=== PATIENT | female | born 1935 | race Caucasian/White ===

== ENCOUNTER 2017-08-31 17:40 | Inpatient (IN) | END 2017-09-01 14:06 | disposition home or self-care (01) | DRG 309 ==

== ENCOUNTER 2017-11-08 00:36 | Inpatient (IN) | END 2017-11-11 18:05 | disposition home or self-care (01) | DRG 92 ==

== ENCOUNTER 2018-04-29 19:31 | Inpatient (IN) | payer MEDICARE, OTHER ==
[~2018-04-29] VITALS: Ht 170.2 cm; Wt 49.8 kg
[~2018-04-29 19:31] MED LIST: ATOR10TA65 PO; DIGO125T93 PO; DILT120C77 PO; DIVA125C16 PO; LEVO25TA6 PO; RIVA20TA5 PO
[2018-04-29] MEDS ORDERED: ONDANSETRON 4 MG INJ IV STA (19:50)
[2018-04-29] MEDS ORDERED: morphine 4 MG/ML VIAL IV STA (19:50)
[2018-04-29] MEDS ORDERED: SOD CHLORIDE 0.9% 1,000 ML IV STA (19:52)
[2018-04-29] MEDS ORDERED: DILTIAZEM 25 MG INJ IV ONE ×2 (20:00→21:00)
[2018-04-29] MEDS ORDERED: PIPER-TAZO 3.375 GM IV (PMX) 100 ML IVPB ONE (20:30)
[2018-04-29] MEDS ORDERED: ASPI-817 PO (20:35)
[2018-04-29] MEDS ORDERED: METO-319 PO (20:35)
[2018-04-29] MEDS ORDERED: AMLO5TAB4 PO (20:35)
[2018-04-29] MEDS ORDERED: SODIUM CHLORIDE 0.9% 1L BAG IV* STA (20:52)
[2018-04-29] MEDS ORDERED: ONDANSETRON 4 MG INJ IV PRN (21:30)
[2018-04-29] MEDS ORDERED: ACETAMINOPHEN 325 MG TAB PO PRN (21:30)
--- NOTE | 2018-04-29 21:33 | ERD ---
ER Documentation Chief Complaint Chief Complaint DAIANA LEVIN from home,abd pain & no BM X3 days per caregiver's report HPI Patient is a 84-year-old female with previous stroke and atrial fibrillation who presents with rapid heart rate. Her family member who is come to the hospital also says that she is having abdominal pain. Please note the history and physical exam is limited as the patient is nonverbal from previous stroke. She has no fevers. Symptoms started today. She does have a primary doctor. ROS All systems reviewed and are negative except as per history of present illness. Medications Home Meds Reported Medications Aspirin* (Aspirin* EC) 81 Mg Tablet.dr, 81 MG PO 3 TIMES A WEEK, TAB 04/29/18 Metoprolol Succinate* (Toprol XL*) 50 Mg Tab.er.24h, 50 MG PO DAILY, #30 TAB NEEDED 04/29/18 Amlodipine Besylate* (Norvasc*) 5 Mg Tablet, 5 MG PO DAILY, TAB NEEDED 04/29/18 Levothyroxine Sodium* (Levothyroxine Sodium*) 25 Mcg Tablet, 25 MCG PO BEFORE MEALS, #30 TAB 11/07/17 Divalproex Sodium* (Depakote* Sprinkle) 125 Mg Cap.sprink, 125 MG PO TID, #90 CAP 11/07/17 Digoxin* (Lanoxin*) 0.125 Mg Tablet, 0.125 MG PO DAILY, TAB 11/07/17 Discontinued Reported Medications Atorvastatin Calcium (Atorvastatin Calcium) 10 Mg Tablet, 10 MG PO DAILY, #30 TAB 11/07/17 Discontinued Scripts Rivaroxaban* (Xarelto*) 20 Mg Tablet, 20 MG PO WITH DINNER, #1 TAB Patient already has supplies. Prov:MIAH LUONG PAIN MEDICINE PHYSICIAN 11/11/17 Diltiazem Hcl* (Cardizem CD*) 120 Mg Cap.sr.24h, 120 MG PO DAILY, #30 CAP Prov:MIAH LUONG PAIN MEDICINE PHYSICIAN 09/01/17 Atorvastatin (Atorvastatin) 10 Mg Tablet, 10 MG PO HS, #30 TAB Prov:MIAH LUONG PAIN MEDICINE PHYSICIAN 09/01/17 Allergies Allergies: Coded Allergies: No Known Allergy (Unverified , 04/29/18) PMhx/Soc Anesthesia Reaction: No Hx Psychiatric Problems: Yes (dementia ) Hx Miscellaneous Medical Probl: Yes Hx Alcohol Use: No Hx Substance Use: No Hx Tobacco Use: No Smoking Status: Never smoker FmHx Unable to obtain Physical Exam Vitals Vital Signs Date Temp Pulse Resp B/P (MAP) Pulse Ox O2 O2 Flow FiO2 Time Delivery Rate 04/29/18 133 31 100/68 94 Mask 12.0 20:15 (79) 04/29/18 98.0 133 27 99/66 (77) 95 Mask 12.0 20:06 04/29/18 98.8 160 29 93/74 (80) 80 19:49 04/29/18 Simple 12 19:41 Mask Physical Exam Const: Moderate distress Head: Atraumatic Eyes: Normal Conjunctiva ENT: Normal External Ears, Nose and Mouth. Neck: Full range of motion. No meningismus. Resp: Clear to auscultation bilaterally Cardio: Regular rate and rhythm, no murmurs Abd: Soft, tenderness to palpation diffusely without rebound or guarding Skin: No petechiae or rashes Back: No midline or flank tenderness Ext: No cyanosis, or edema Neur: Awake nonverbal at baseline Result Diagram: 04/29/18200104/29/182001 Results 24 hrs Laboratory Tests Test 04/29/18 20:02 04/29/18 20:13 04/29/18 20:38 White Blood Count 8.2 10^3/ul Red Blood Count 4.18 10^6/ul Hemoglobin 13.3 g/dl Hematocrit 42.4 % Mean Corpuscular Volume 101.4 fl Mean Corpuscular Hemoglobin 31.8 pg Mean Corpuscular 31.4 g/dl Hemoglobin Concent Red Cell Distribution Width 12.4 % Platelet Count 304 10^3/UL Mean Platelet Volume 13.1 fl Immature Granulocytes % 0.400 % Neutrophils % % Lymphocytes % % Monocytes % % Eosinophils % % Basophils % % Nucleated Red Blood Cells % 0.0 /100WBC Immature Granulocytes # 0.030 10^3/ul Neutrophils # 10^3/ul Lymphocytes # 10^3/ul Monocytes # 10^3/ul Eosinophils # 10^3/ul Basophils # 10^3/ul Nucleated Red Blood Cells # 10^3/ul Prothrombin Time 15.1 Sec Prothrombin Time Ratio 1.2 INR International 1.17 Normalized Ratio Activated Partial Thromboplast 25.8 Sec Time Sodium Level 145 mmol/L Potassium Level 4.2 mmol/L Chloride Level 103 mmol/L Carbon Dioxide Level 28 mmol/L Anion Gap 14 Blood Urea Nitrogen 52 mg/dl Creatinine 1.09 mg/dl Est Glomerular Filtrat mL/min Rate mL/min Glucose Level 163 mg/dl Calcium Level 9.9 mg/dl Total Bilirubin 0.4 mg/dl Direct Bilirubin 0.00 mg/dl Indirect Bilirubin 0.4 mg/dl Aspartate Amino 20 IU/L Transf (AST/SGOT) Alanine 9 IU/L Aminotransferase (ALT/SGPT) Alkaline Phosphatase 99 IU/L Troponin I 0.018 ng/ml Total Protein 6.8 g/dl Albumin 3.4 g/dl Globulin 3.40 g/dl Albumin/Globulin Ratio 1.00 Lipase 12 U/L Digoxin Level 0.4 ng/ml Valproic Acid (Depakene) Level 27 ug/ml POC Venous Lactate 5.1 mmol/L Urine Color LIZANDRO Urine Clarity SLIGHTLY CLOUDY Urine pH 5.0 Urine Specific [place] 1.025 Urine Ketones NEGATIVE mg/dL Urine Nitrite NEGATIVE mg/dL Urine Bilirubin NEGATIVE mg/dL Urine Urobilinogen 2+ mg/dL Urine Leukocyte Esterase NEGATIVE Lay/ul Urine Microscopic RBC 3 /HPF Urine Microscopic WBC 3 /HPF Urine Mucus MANY /HPF Urine Hemoglobin NEGATIVE mg/dL Urine Glucose NEGATIVE mg/dL Urine Total Protein 2+ mg/dl Current Medications Medications Dose Sig/Elena Start Time Status Last (Trade) Ordered Route PRN Stop Time Admin Dose Reason Admin Morphine 4 mg ONCE STAT 04/29/18 DC 04/29/18 Sulfate IV 19:50 19:58 (morphine) 04/29/18 19:52 Ondansetron 4 mg ONCE STAT 04/29/18 DC 04/29/18 HCl (Zofran IV 19:50 19:58 Inj) 04/29/18 19:52 Diltiazem 10 mg ONCE ONCE 04/29/18 DC 04/29/18 HCl IV 20:00 19:59 (Cardizem Iv) 04/29/18 20:01 Sodium 1,000 ml @ Q1H STAT 04/29/18 DC 04/29/18 Chloride 1,000 mls/hr IV 19:52 19:58 04/29/18 20:53 Piperacillin 100 ml @ ONCE ONCE 04/29/18 DC 04/29/18 Sod/ 200 mls/hr IVPB 20:30 20:27 Tazobactam 04/29/18 Sod 20:59 Diltiazem 10 mg ONCE ONCE 04/29/18 DC 04/29/18 HCl IV 21:00 20:47 (Cardizem Iv) 04/29/18 21:01 Sodium 1,770 ml BOLUS OVER 2 04/29/18 DC 04/29/18 Chloride HOURS STAT 20:52 21:02 (NS) IV* 04/29/18 20:53 Ondansetron 4 mg ER BRIDGE 04/29/18 HCl (Zofran PRN IV 21:30 Inj) NAUSEA AND/OR 04/30/18 VOMITING 21:29 650 mg ER BRIDGE 04/29/18 Acetaminophen PRN PO MILD 21:30 (Tylenol PAIN(1-3)OR 04/30/18 Tab) ELEVATED TEMP 21:29 Procedures/MDM CT abdomen pelvis is pending at this time. Chest x-ray read by radiology. EKG read by me: Rate/Rhythm: Atrial fibrillation at a rate of 125 Intervals: Normal Impression: Rapid A. fib Patient is a 84-year-old female who presents with abdominal pain and rapid atrial fibrillation. She had no fever in the emergency department but she did have an elevated lactic acid level. However at this point I see no sign of bacterial infection and I do not think this elevated lactic acid is related to sepsis or septic shock. I believe the elevated lactic acid is most likely related to rapid atrial fibrillation and decreased perfusion due to cardiac output reduction. The patient was given 2 doses of diltiazem 10 mg IV which did improve her heart rate. She was also given 30 mL/kg fluid bolus of normal saline. She was given Zosyn empirically in case there was an infection found although I have not done any infection as of yet. Blood cultures and urine cultures are pending. The patient will be admitted to the care of Dr. De La Paz from the panel team to a telemetry bed. Prognosis is poor given age and comorbidities and discussion with the family regarding goals of care would likely be appropriate. Patient will be signed out to the oncoming physician awaiting the results of the CT scan report. Critical Care: Time: 35 minutes excluding all billable procedures. Treatments/Evaluations: Close monitoring and treatment of unstable vital signs, cardiorespiratory, and neurologic status, while maintaining tight balance of fluid, respiratory, and cardiac interventions. Departure Diagnosis: Primary Impression: Rapid atrial fibrillation Additional Impressions: Elevated lactic acid level Abdominal pain Abdominal location: generalized Qualified Codes: R10.84 - Generalized abdominal pain Condition: Serious ART GAMBOA MD Apr 29, 2018 21:33
[2018-04-29] MEDS ORDERED: NORepinephrine 8MG/250 ML (PMX 250 ML ONE (23:28)
[2018-04-29] MEDS ORDERED: NORepinephrine 8MG/250 ML (PMX 250 ML IV SCH (23:30)
--- NOTE | 2018-04-29 23:43 | HP ---
Date/Time of Note Date/Time of Note DATE: 04/29/18 TIME: 23:43 Assessment/Plan VTE Prophylaxis SCD applied (from Nsg): Yes Pharmacological prophylaxis: NA/contraindicated Pharm contraindication: surgical contra Lines/Catheters IV Catheter Type (from Nrsg): Saline Lock Assessment/Plan Hospital Course This is a 84-year-old female was being admitted to the ICU floor for: #1 Abdominal perforation: Free air in the abdomen possibly secondary to perforation of the colon and/or possible perforated appendicitis. Patient was started on antibiotics of Zosyn and vancomycin. There was an emergent call placed to Dr. Jacques of general surgery. Initially the family was hesitant to surgery however they also were hesitant to comfort care. After discussion of the caregiver with Dr. Jacques the decision was made to proceed with emergency exploratory laparotomy. However given patient's worsening clinical condition followed by subsequent examination by Dr. Jacques the decision was made to not o perate on the patient as she was not deemed a good surgical candidate. Recommendation by me as well as the surgeon Dr. Jacques was for comfort care which the family initially seemed on board for however they decided to proceed with the patient being full code and medical management. I did reiterate to the family that the patient does appear to be in discomfort and likely will not survive this critical condition, they stated that they needed more time to contact the family members and in the meantime wanted to keep her a full code. At the current time she will be taking to the ICU. She has already been started on Ahsan-Synephrine to help with her hypotension. Dr. alonso the ED physician ki morroly agreed to place a central line. Will monitor the patient closely in ICU. Serial labs. Continue antibiotics. CT scan of the abdomen pelvis showed:1. Moderate amount of free air is noted throughout the abdomen. Large amount of free air is also identified within pelvis and air appears to be a focal area of perforation within the proximal to mid sigmoid colon. Large amount of stool noted throughout the sigmoid colon. Small amount of free fluid is noted within the pelvis. There is also a focal fluid collection measuring 3.8 x 3.5 cm with anterior right lower pelvis worrisome for abscess. A follow-up CT scan with rectal gastrographin contrast would be useful for confirmation.2. Thickening of the wood of the right colon and free fluid and several foci of free air is also identified adjacent to the cecum. The appendix is not clearly identified and perforated appendicitis is also a possibility. #2 septic shock: Secondary to underlying perforation as well as possible abs cess. At the current time we will maintain the patient on pressors, central line will be inserted by the ED physician. Broad-spectrum antibiotics of vancomycin and Zosyn. Panculture. IV fluid hydration with normal saline while being mindful of patient's cardiac status given her rapid A. fib with RVR. Trend lactate levels. #3 acute respiratory failure: Patient did present hypoxic and tachycardic. There is a possibility also of pulmonary embolism especially given her rapid A. fib and patient possibly not on any anticoagulation at the current time however given her unstable status she likely will not tolerate a CTA of the chest at the given time. We will continue to monitor closely, she is currently on nonrebreather. She also remains a full code so if she does deteriorate there is a possibility of needing intubation as a last resort. #4 rapid A. fib with RVR: Patient presented with rapid A. fib with RVR with rates going all the way up to the 160s-170s. Patient was given Cardizem initially which did result in good response however despite this patient continued to go into rapid A. fib and she did develop hypotension. She was started on Ahsan-Synephrine to help with blood pressure and she was given a Cardizem bolus which did result in improvement of the heart rate to approx imately 110. Will obtain an echocardiogram. Will consult cardiology. . As per the EMR it appears that the patient was on Xarelto in the past, however the current time patient's PTT PT and INR do not reflect that she is on any anticoagulation. We will need to confirm this with the family. #5 dementia: Later confirmed to me by the family that the patient is bedridden for the last 3 months or so. She gets around with the help of family on a wheelchair. She is minimally verbal as well. At the current time patient was not deemed a good candidate for surgery. We will continue medical management at this time and supportive care. #6 Acute kidney injury: Patient's previous creatinine was 0.56. This is likely secondary to underlying sepsis, perforation. Currently we will be giving gentle IV fluid hydration, pressors for pressor support. Monitor closely. Given her bowel perforation at the chances of her developing further kidney failure and eventual multiorgan failure is high. #7 hypertension: Hold blood pressure medications at the current time given patient's hypotension #8 history of stroke: Likely resulting in patient's current debility. # 9DVT GI prophylaxis: SCDs, Protonix IV CODE STATUS: Full code, I did have an extensive discussion with the caregiver/family member at the bedside as well as the caregivers daughter over the phone. Dr. Jacques also had conversation with the family regarding the patient's clinical condition. Patient's prognosis is poor with being inevitable given her critical condition. Family at the current time would like to proceed with full code. I did reiterate to the family that I think it is in the patient's best interest to at least be considered a DNR/DNI and even better if she could be made comfort care given the severity of her condition. However family still wishes to proceed with full code. Greater than 55 minutes of critical care time was spent on the care and management this patient. Result Diagram: 04/29/18200104/29/182001 Results 24hrs Laboratory Tests Test 04/29/18 20:02 04/29/18 20:13 04/29/18 20:38 04/29/18 22:51 White Blood 8.2 Count Red Blood Count 4.18 L Hemoglobin 13.3 Hematocrit 42.4 Mean 101.4 H Corpuscular Volume Mean 31.8 Corpuscular Hemoglobin Mean 31.4 L Corpuscular Hemoglobin Conc ent Red Cell 12.4 Distribution Width Platelet Count 304 Mean Platelet 13.1 H Volume Immature 0.400 Granulocytes % Neutrophils % Segmented 62 Neutrophils % (Manual) Band 12 H Neutrophils % (Manual) Lymphocytes % Lymphocytes % 20 (Manual) Monocytes % Monocytes % 5 (Manual) Eosinophils % Basophils % Metamyelocytes 1 H % (manual) Nucleated Red 0.0 Blood Cells % Immature 0.030 Granulocytes # Neutrophils # Neutrophils # 5.2 (Manual) Band 0.9 H Neutrophils # Lymphocytes 1.6 (Manual) Lymphocytes # Monocytes # Monocytes # 0.4 (Manual) Eosinophils # Basophils # Metamyelocytes 0.0 # Nucleated Red Blood Cells # Giant Platelets 1 H Prothrombin 15.1 H Time Prothrombin 1.2 Time Ratio INR 1.17 International Normalized Rati o Activated 25.8 Partial Thrombo plast Time Sodium Level 145 H Potassium Level 4.2 Chloride Level 103 Carbon Dioxide 28 Level Anion Gap 14 H Blood Urea 52 H Nitrogen Creatinine 1.09 H Est Glomerular Filtrat Rate mL/min Glucose Level 163 Calcium Level 9.9 Total Bilirubin 0.4 Direct 0.00 Bilirubin Indirect 0.4 Bilirubin Aspartate Amino 20 Transf (AST/SGO T) Alanine 9 L Aminotransferas e (ALT/SGPT) Alkaline 99 Phosphatase Troponin I 0.018 Total Protein 6.8 Albumin 3.4 Globulin 3.40 H Albumin/Globuli 1.00 n Ratio Lipase 12 L Digoxin Level 0.4 L Valproic Acid 27 L (Depakene) Level POC Venous 5.1 *H 2.8 *H Lactate Urine Color LIZANDRO Urine Clarity SLIGHTLY CLOUDY A Urine pH 5.0 Urine Specific 1.025 [place] Urine Ketones NEGATIVE Urine Nitrite NEGATIVE Urine Bilirubin NEGATIVE Urine 2+ H Urobilinogen Urine Leukocyte NEGATIVE Esterase Urine 3 Microscopic RBC Urine 3 Microscopic WBC Urine Mucus MANY A Urine NEGATIVE Hemoglobin Urine Glucose NEGATIVE Urine Total 2+ H Protein HPI/ROS Admit Date/Time Admit Date/Time Hx of Present Illness Chief complaint: abdominal pain and no BM for 3 days The following history was obtained from the ED physician documentation as well as from the/caregiver who was at the bedside as patient was unable to provide history. The patient is a 84-year-old female with previous stroke and atrial fibrillation who presents with rapid heart rate. Her family member who is come to the hospital also says that she is having abdominal pain. Patient apparently has a history of a stroke and is nonverbal from this. Patient presented with rapid A. fib and RVR and she was given Cardizem which did result in improvement of the heart rate however patient again went into rapid A. fib and she also was hypotensive. She also presented with oxygenation desaturation in the 70s which did subsequently improve with nonrebreather. Patient was seen and examined at the bedside. Patient did appear to be alert and looking around but she did appear to be lethargic. When I did examine her belly he did feel quite rigid and patient did appear to grimace in pain. A CT scan of the abdomen pelvis was done which showed signs of free free air suggestive of bowel perforation. I did speak with Dr. Jacques who is the surgeon on-call in regards to the patient's clinical condition as well as her abnormal CAT scan finding and a suggestion was that the patient's condition is very grave and that either there were need to be an emergency surgery or patient would be need to be made comfort care as she likely will not survive this illness. I spoke with the family member/caregiver at the bedside who initially was hesitant to surgery and she just wanted the patient's "bowels to be cleaned" that she reported that patient had not had a bowel movement 3 days. I did explain to the family member that the patient's clinical condition is very severe and she would either need to have surgery or be made comfortable as she likely will not be able to survive from this. Though the family member did speak Pashto we also did get an Nauruan formulation chemist to help with any clarification. I also spoke with the caregivers daughter on the phone and explained the situation as well. The caregiver also did say to me that the patient is not going to be receiving any money until around October 12 and that at the current time she would not be able to pay for the patient's if she were to pass away. After extensive discussion with the family member the decision was made by the family member to proceed with surgery.I did contact Dr. Jacques in regards to this information and Dr. Jacques stated that he would be coming in to take her to emergency exploratory laparotomy. When I spoke to the family again at the bedside while we were waiting for the patient to go to surgery the family member did state that the patient has been basically bedridden for the last 3 months and that she does not move around much aside from when the sister on a wheelchair. With this new information I did reiterate to the family that it would probably be in the patient's best interest to not undergo surgery and be made comfort care given her clinical condition. Also during this time the patient also appeared to be more lethargic. Upon Dr. Jacques's examination and based on the patient's worsening clinical condition patient was deemed not a stable candidate for surgery. He recommended that the patient be comfort care. Initially the family member appear to be on board with this however when I wanted to clarify goals of care and CODE STATUS the family member wanted to keep the patient a full code until she went and discussed with her family at home. I did discuss the patient's critical condition to the caregiver as well as with her daughter again on the telephone however at the current time they wanted to keep the patient a full code until they were able to speak to other family members. ROS Subjective hx not possible: pt non-verbal PMH/Family/Social Past Medical History dementia, hypertension and questionable seizure disorder, questionable stroke, atrial fibrillation Medications Current Medications Ondansetron HCl (Zofran Inj) 4 mg ER BRIDGE PRN IV NAUSEA AND/OR VOMITING; Start 04/29/18 at 21:30; Stop 04/30/18 at 21:29 Acetaminophen (Tylenol Tab) 650 mg ER BRIDGE PRN PO MILD PAIN(1-3)OR ELEVATED TEMP; Start 04/29/18 at 21:30; Stop 04/30/18 at 21:29 Phenylephrine HCl 250 ml @ 75 mls/hr TITRATE IV ; Start 04/30/18 at 00:00 Coded Allergies: No Known Allergy (Unverified , 04/29/18) Past Surgical History Past Surgical Hx: other Family History Significant Family History: no pertinent family hx Social History Alcohol Use: none (Unknown) Smoking Status: Never smoker Drug Use: none Exam/Review of Systems Vital Signs Vitals Vital Signs Date Temp Pulse Resp B/P (MAP) Pulse Ox O2 O2 Flow FiO2 Time Delivery Rate 04/29/18 142 28 93/55 (68) 94 Mask 12.0 23:00 04/29/18 98.0 20:06 Exam Exam General: Patient is awake, she does appear to be lethargic, does appear to be moaning in mild distress. Through the clinical course patient appeared to be more and more lethargic and deteriorating. HEENT: Atraumatic, normocephalic. The pupils are equal, round and reactive. Extraocular motor are intact Neck: Supple with full range of motion. No rigidity or meningismus Chest: Nontender Lungs: Clear to auscultation bilaterally no crackles rales or wheezing Heart: Irregularly irregular, rapid Abdomen: Rigid abdomen, tender to palpation Extremities: Normal to inspection, no edema no cyanosis Neurologic: Awake looking around, she is not verbally responsive. Through the clinical course she appeared to be more lethargic and deteriorating. Additional Comments PROCEDURE: CT ABDOMEN AND PELVIS WITHOUT CONTRAST. CLINICAL INDICATION: Abdominal pain TECHNIQUE: CT scan of the abdomen and pelvis without contrast was performed on a multidetector high-resolution CT scanner. The patient was scanned without intravenous contrast. Coronal and sagittal reformatted images were obtained from the axial source images. Images were reviewed on a high-resolution PACS workstation. The total exam CTDI equals 8.6 mGy and the total exam DLP equals 481.3 mGy-cm. One or more of the following dose reduction techniques were used: Automated exposure control. Adjustment of the mA and/or kV according to patient size. Use of iterative reconstruction technique. DICOM images are available COMPARISON: None FINDINGS: CT abdomen: Bilateral lower lobe atelectasis and small pleural effusions. Heart size enlarged. There are coronary atherosclerotic calcifications. Bilateral calcified breast implants are noted. Hepatic morphology is within normal limits. There is mild perihepatic fluid and air. Gallbladder is distended with calcification of the wood and gallstones. The spleen and pancreas are within normal limits. Both adrenal glands are within normal limits. Both kidneys are in normal anatomic position. No evidence of obstruction or hydronephrosis. No gross renal/ureteric calculi. The visualized GI tract demonstrates normal caliber loops of small large bowel. Stool is noted throughout large bowel. No gross evidence of bowel obstruction. Intra-abdominal moderate amount of free air is identified. There is diffuse thickening of the wood of the right colon. The appendix not visualized. The appendix not clearly identified. Atherosclerotic calcification of the aorta is identified. No significant retroperitoneal lymphadenopathy. CT pelvis: The rectosigmoid colon demonstrates large amount of stool. Thickening of the wood of the sigmoid colon is noted. There are multiple foci of free air within the pelvis. There appears to be several foci of air originating from a segment of the proximal to mid sigmoid colon worrisome for perforation. There is also a focal fluid collection measuring 3.8 x 3.5 cm within the anterior right lower pelvis, highly concerning for abscess. The visualized osseous structures demonstrate multilevel degenerative disease of the spine. Grade 1 anterolisthesis of L4-L5 is noted. Chronic compression deformity of L1 is noted. IMPRESSION: 1. Moderate amount of free air is noted throughout the abdomen. Large amount of free air is also identified within pelvis and air appears to be a focal area of perforation within the proximal to mid sigmoid colon. Large amount of stool noted throughout the sigmoid colon. Small amount of free fluid is noted within the pelvis. There is also a focal fluid collection measuring 3.8 x 3.5 cm with anterior right lower pelvis worrisome for abscess. A follow-up CT scan with rectal gastrographin contrast would be useful for confirmation. 2. Thickening of the wood of the right colon and free fluid and several foci of free air is also identified adjacent to the cecum. The appendix is not clearly identified and perforated appendicitis is also a possibility. Correlate with clinical findings. 3. Porcelain gallbladder, containing gallstones. 4. Perihepatic fluid and air. 5. Diffuse atherosclerosis aorta. 6. Cardiomegaly and atherosclerotic disease. Call report was made with Dr. Singh @ 10:35 PM on 04/29/18 RPTAT: AAPP Physician Brianne Date Time Electronically viewed and signed by Physician Brianne on 04/29/2018 22:37 JL/ CC: ART GAMBOA MD [id number] PROCEDURE: XR Chest. CLINICAL INDICATION: Shortness of breath. TECHNIQUE: Single AP portable chest. COMPARISON: 11/01/2017 Chest x-ray FINDINGS: The cardiomediastinal silhouette is within normal limits of size. The lungs are clear without pleural effusion or focal consolidation. Atherosclerotic calcification of the aorta. Calcified bilateral breast implants. No pneumothorax. The osseous structures and soft tissues are unremarkable. IMPRESSION: 1. No evidence for active cardiopulmonary disease. RPTAT:AAJJ Calvin Pereira Physician Date Time Electronically viewed and signed by Physician Dejan on 04/29/2018 21:01 NICOLE/ CC: ART GAMBOA MD [id number] LARON MAYES Apr 29, 2018 23:43
[2018-04-29] MEDS: PHENYLephrine 20MG IN 250 ML 250 ML IV SCH (23:45)
[2018-04-30] VITALS (73 sets, daily range): BP systolic 89–131; BP diastolic 53–80; PULSE 95–166; RESP 25–40; Ht 170.2 cm; Wt 49.8 kg
[2018-04-30] MEDS ORDERED: VANCOMYCIN IV PER PHARMACY XX SCH
[2018-04-30] MEDS ORDERED: SOD CHLORIDE 0.9% 1,000 ML IV ONE
[2018-04-30] MEDS ORDERED: VANCOMYCIN 1 GM in 250 ML IVPB ONE
--- NOTE | 2018-04-30 00:23 | CONS ---
Date/Time of Note Date/Time of Note DATE: 04/30/18 TIME: 00:15 Assessment/Plan Assessment/Plan Assessment/Plan Patient is near and moribund She is not a surgical candidate This has been discussed in some detail with a female family member. The patient will be admitted to a medical floor for palliative care and comfort measures. The family member is comfortable with these recommendations and agrees. Result Diagram: 04/29/18200104/29/182001 Results 24hrs Laboratory Tests Test 04/29/18 20:02 04/29/18 20:13 04/29/18 20:38 04/29/18 22:51 White Blood 8.2 Count Red Blood Count 4.18 L Hemoglobin 13.3 Hematocrit 42.4 Mean 101.4 H Corpuscular Volume Mean 31.8 Corpuscular Hemoglobin Mean 31.4 L Corpuscular Hemoglobin Conc ent Red Cell 12.4 Distribution Width Platelet Count 304 Mean Platelet 13.1 H Volume Immature 0.400 Granulocytes % Neutrophils % Segmented 62 Neutrophils % (Manual) Band 12 H Neutrophils % (Manual) Lymphocytes % Lymphocytes % 20 (Manual) Monocytes % Monocytes % 5 (Manual) Eosinophils % Basophils % Metamyelocytes 1 H % (manual) Nucleated Red 0.0 Blood Cells % Immature 0.030 Granulocytes # Neutrophils # Neutrophils # 5.2 (Manual) Band 0.9 H Neutrophils # Lymphocytes 1.6 (Manual) Lymphocytes # Monocytes # Monocytes # 0.4 (Manual) Eosinophils # Basophils # Metamyelocytes 0.0 # Nucleated Red Blood Cells # Giant Platelets 1 H Prothrombin 15.1 H Time Prothrombin 1.2 Time Ratio INR 1.17 International Normalized Rati o Activated 25.8 Partial Thrombo plast Time Sodium Level 145 H Potassium Level 4.2 Chloride Level 103 Carbon Dioxide 28 Level Anion Gap 14 H Blood Urea 52 H Nitrogen Creatinine 1.09 H Est Glomerular Filtrat Rate mL/min Glucose Level 163 Calcium Level 9.9 Total Bilirubin 0.4 Direct 0.00 Bilirubin Indirect 0.4 Bilirubin Aspartate Amino 20 Transf (AST/SGO T) Alanine 9 L Aminotransferas e (ALT/SGPT) Alkaline 99 Phosphatase Troponin I 0.018 Total Protein 6.8 Albumin 3.4 Globulin 3.40 H Albumin/Globuli 1.00 n Ratio Lipase 12 L Digoxin Level 0.4 L Valproic Acid 27 L (Depakene) Level POC Venous 5.1 *H 2.8 *H Lactate Urine Color LIZANDRO Urine Clarity SLIGHTLY CLOUDY A Urine pH 5.0 Urine Specific 1.025 [place] Urine Ketones NEGATIVE Urine Nitrite NEGATIVE Urine Bilirubin NEGATIVE Urine 2+ H Urobilinogen Urine Leukocyte NEGATIVE Esterase Urine 3 Microscopic RBC Urine 3 Microscopic WBC Urine Mucus MANY A Urine NEGATIVE Hemoglobin Urine Glucose NEGATIVE Urine Total 2+ H Protein Consultation Date/Type/Reason Admit Date/Time Date of Consultation: Apr 30, 2018 Type of Consult General surgery Reason for Consultation Perforated viscus Hx of Present Illness The patient is an 84-year-old female with an underlying diagnosis of atrial fibrillation and dementia who comes in with severe abdominal pain. In the emergency room she was noted to have a rigid abdomen abdomen. CT scan showed a moderate pneumoperitoneum with the origin likely in the sigmoid colon. Of note is the fact that her heart rate was in the 160s and was brought down with a Cardizem drip down to approximately 110. The family was appraised of her situation and initially declined any surgical intervention but subsequently they have changed their mind and wished to have everything done knowing that the patient will likely remain on a ventilator and have a colostomy. Subjective hx not possible: pt non-verbal, pt critical status Past Medical History Medical History: coronary artery disease Medications Current Medications Ondansetron HCl (Zofran Inj) 4 mg ER BRIDGE PRN IV NAUSEA AND/OR VOMITING; Start 04/29/18 at 21:30; Stop 04/30/18 at 21:29 Acetaminophen (Tylenol Tab) 650 mg ER BRIDGE PRN PO MILD PAIN(1-3)OR ELEVATED TEMP; Start 04/29/18 at 21:30; Stop 04/30/18 at 21:29 Phenylephrine HCl 250 ml @ 75 mls/hr TITRATE IV Last administered on 04/29/18 at 23:45; Admin Dose 75 MLS/HR; Start 04/30/18 at 00:00 Sodium Chloride 1,000 ml @ 1,000 mls/hr Q1H ONCE IV ; Start 04/30/18 at 00:00; Stop 04/30/18 at 00:59 Vancomycin HCl (Vanco Iv Per Pharmacy) VANCOMYCIN PER PHARMACY PER PROTOCOL XX ; Start 04/30/18 at 00:00 Piperacillin Sod/ Tazobactam Sod 100 ml @ 200 mls/hr Q6 IVPB ; Start 04/30/18 at 02:00 Vancomycin HCl 250 ml @ 125 mls/hr ONCE ONCE IVPB ; Start 04/30/18 at 00:00; Stop 04/30/18 at 01:59 Vancomycin/Sodium Chloride 250 ml @ 125 mls/hr Q24H IVPB ; Start 05/01/18 at 00:00 Allergies: Coded Allergies: No Known Allergy (Unverified , 04/29/18) Past Surgical History Past Surgical Hx: no surgical history Social History Smoking Status: Never smoker Exam/Review of Systems Vital Signs Vitals Vital Signs Date Temp Pulse Resp B/P (MAP) Pulse Ox O2 O2 Flow FiO2 Time Delivery Rate 04/29/18 138 26 101/68 97 Mask 12.0 23:51 (79) 04/29/18 98.0 20:06 Exam The patient is moribund and unresponsive Heart rate is 166. Blood pressure is 60 There are no spontaneous eye movements Initially, abdominal examination was reported to be rigid. Now the patient does not respond to abdominal palpation Medications Medications Current Medications Ondansetron HCl (Zofran Inj) 4 mg ER BRIDGE PRN IV NAUSEA AND/OR VOMITING; Start 04/29/18 at 21:30; Stop 04/30/18 at 21:29 Acetaminophen (Tylenol Tab) 650 mg ER BRIDGE PRN PO MILD PAIN(1-3)OR ELEVATED TEMP; Start 04/29/18 at 21:30; Stop 04/30/18 at 21:29 Phenylephrine HCl 250 ml @ 75 mls/hr TITRATE IV Last administered on 8at 23:45; Admin Dose 75 MLS/HR; Start 04/30/18 at 00:00 Sodium Chloride 1,000 ml @ 1,000 mls/hr Q1H ONCE IV ; Start 04/30/18 at 00:00; Stop 04/30/18 at 00:59 Vancomycin HCl (Vanco Iv Per Pharmacy) VANCOMYCIN PER PHARMACY PER PROTOCOL XX ; Start 04/30/18 at 00:00 Piperacillin Sod/ Tazobactam Sod 100 ml @ 200 mls/hr Q6 IVPB ; Start 04/30/18 at 02:00 Vancomycin HCl 250 ml @ 125 mls/hr ONCE ONCE IVPB ; Start 04/30/18 at 00:00; Stop 04/30/18 at 01:59 Vancomycin/Sodium Chloride 250 ml @ 125 mls/hr Q24H IVPB ; Start 12/30/18 at 00:00 MELIZA CORREA MD Apr 30, 2018 00:23
[2018-04-30] MEDS: PIPER-TAZO 3.375 GM IV (PMX) 100 ML IVPB SCH ×5 (02:00→23:37)
[2018-04-30] MEDS ORDERED: morphine 4 MG/ML VIAL IV ONE (02:42)
[2018-04-30] MEDS: SOD CHLORIDE 0.9% 1,000 ML IV SCH ×2 (02:58→13:36)
[2018-04-30] MEDS ORDERED: DILTIAZEM 25 MG INJ IV ONE ×2 (03:00)
--- NOTE | 2018-04-30 07:41 | NUR ---
pt arrived to unit on simple mask, bumped to 6L. minimally responsive to pain and repositioning. shallow breathing/poor ventilation noted. afib on the monitor labile rate from 100-155. morphine 0.5mg given x1. held cardizem as HR seemed to be hanging <120 -- did give this one time dose in the AM of 10mg cardizem as it was initially held, but her HR was hanging in the 140s consistently. oriented to self, kenyan speaking. abd soft. hypoactive. guardado placed. marginal UO of 125cc since 214. physician aware. per family, her baseline is not verbal, non amb for 6months. DTI on upper mid back, nickel sized. state 2 on sacrum. upon arrival, jenny was infusing at 100mcg, now at 40mcg with appropriate map and sbp. will continue to monitor closely.
[2018-04-30] MEDS: PHENYLephrine 20MG IN 250 ML 250 ML IV SCH (11:43)
--- NOTE | 2018-04-30 11:58 | NUR ---
RX NOTE RE: VANCOMYCIN PER RX DAY#1 OF VANCO PER RX BUN/SCR: 42/0.83 TMAX: 100 WBC: 14.4 ALLERGIES: NKDA OTHER ABX: ZOSYN LOAD VANCOMYCIN 1000MG X1 C/W VANCOMYCIN 750MG IV Q24HR PHARMACY TO FOLLOW
--- NOTE | 2018-04-30 13:04 | NUR ---
NUTRITION NOTE: Pt with PMH of dementia, bedridden status past 3 months, minimally verbal. S/p CT abdomen, findings showed abdominal perforation. Per MD, pt is not a surgical candidate. Currently NPO. On pressor support, jenny-synpeph at 30 mcg/min. Family not seen available at bedside at time of visit. Pending family decision on code status and possibly comfort care measures. Noted pt with stage 2 p/u on sacrococcyx. Per nutrition-focused physical exam, pt is identified with moderate clavicle protrusion and temporal wasting. Pt meets criteria for moderate protein calorie malnutrition Receiving NS at 60 ml/hr. Pt with elevated Na+ = 147. If medically feasible, may consider changing to 1/2NS. Will monitor for decisions on goals of care and reevaluate need/appropriateness of nutrition support if PO intake is not medically feasible/as per MD.
[2018-04-30] MEDS ORDERED: LACTATED RINGER'S 250 ML IV ONE ×2 (14:00→17:00)
[2018-04-30] MEDS: LACTATED RINGER'S 1,000 ML IV SCH (14:16)
--- NOTE | 2018-04-30 14:28 | PN ---
Date/Time of Note Date/Time of Note DATE: 04/30/18 TIME: 14:23 Assessment/Plan VTE Prophylaxis Risk score (from Ns)>0 risk: 7 SCD applied (from Ns): Yes Pharmacological prophylaxis: heparin Lines/Catheters IV Catheter Type (from [facility]): Central Line Central line still needed: Yes Urinary Cath still in place: Yes Reason Cath still needed: skin wounds contaminated by urine Assessment/Plan Problems: (1) Septic shock Onset Date: ~ 04/29/2018 Status: Acute Comment: Patient is on Ahsan-Synephrine drip at this time and her blood pressure is marginally holding. She is on antibiotics and we can try and support her and get a give her another fluid bolus to see if we can get her balanced out. Regrettably the cause of this is a perforated viscus. In a patient with a higher functional capacity and less underlying medical problems taking her to the operating room would be an extremely risky but doable proposition. Given the extra issues that this particular individual faces it would be far less desirable direction. If we get her stabilized a little bit improved might theoretically be a consideration although that is extremely questionable. Please see the notes from his surgical consult (2) Perforated abdominal viscus Onset Date: ~ 04/29/2018 Status: Acute Comment: On antibiotics aggressively (3) Essential hypertension Status: Chronic Comment: At this time she is not hypertensive (4) Rapid atrial fibrillation Status: Acute Comment: We will try one tiny dose of IV metoprolol see if I can slow down the rate on also working to bring of the blood pressure up using fluids and antibiotic therapy (5) Prerenal azotemia Status: Acute Comment: Fluid hydration (6) Acute kidney injury Status: Acute Comment: Noted. (7) Bedridden Status: Chronic Comment: Noted. (8) Dementia Status: Chronic Comment: I actually am of the opinion that were going to need to go to biomedical ethics. The person who is here is her spokesperson lives with her wishes for us to do what we can to keep her alive until May 13 or . This is medically unlikely. In addition since we are unable to as of yet identified other people who can speak for her or contribute this creates a c onundrum for the treating team. As such we will spend the next couple of days trying to locate all of those involved. This would include the certified personal trainer who is apparently handling some of the affairs for this patient although her spokesperson was not forthcoming with his name or phone number yet. Qualifiers: Dementia type: unspecified type Dementia behavioral disturbance: without behavioral disturbance Qualified Codes: F03.90 - Unspecified dementia without behavioral disturbance Result Diagram: 04/30/18 0524 04/30/18 0524 Results 24hrs Laboratory Tests Test 04/29/18 20:02 04/29/18 20:13 04/29/18 20:38 04/29/18 22:51 White Blood 8.2 Count Red Blood Count 4.18 L Hemoglobin 13.3 Hematocrit 42.4 Mean 101.4 H Corpuscular Volume Mean 31.8 Corpuscular Hemoglobin Mean 31.4 L Corpuscular Hemoglobin Conc ent Red Cell 12.4 Distribution Width Platelet Count 304 Mean Platelet 13.1 H Volume Immature 0.400 Granulocytes % Neutrophils % Segmented 62 Neutrophils % (Manual) Band 12 H Neutrophils % (Manual) Lymphocytes % Lymphocytes % 20 (Manual) Monocytes % Monocytes % 5 (Manual) Eosinophils % Basophils % Metamyelocytes 1 H % (manual) Nucleated Red 0.0 Blood Cells % Immature 0.030 Granulocytes # Neutrophils # Neutrophils # 5.2 (Manual) Band 0.9 H Neutrophils # Lymphocytes 1.6 (Manual) Lymphocytes # Monocytes # Monocytes # 0.4 (Manual) Eosinophils # Basophils # Metamyelocytes 0.0 # Nucleated Red Blood Cells # Giant Platelets 1 H Prothrombin 15.1 H Time Prothrombin 1.2 Time Ratio INR 1.17 International Normalized Rati o Activated 25.8 Partial Thrombo plast Time Sodium Level 145 H Potassium Level 4.2 Chloride Level 103 Carbon Dioxide 28 Level Anion Gap 14 H Blood Urea 52 H Nitrogen Creatinine 1.09 H Est Glomerular Filtrat Rate mL/min Glucose Level 163 Calcium Level 9.9 Total Bilirubin 0.4 Direct 0.00 Bilirubin Indirect 0.4 Bilirubin Aspartate Amino 20 Transf (AST/SGO T) Alanine 9 L Aminotransferas e (ALT/SGPT) Alkaline 99 Phosphatase Troponin I 0.018 Total Protein 6.8 Albumin 3.4 Globulin 3.40 H Albumin/Globuli 1.00 n Ratio Lipase 12 L Thyroid 3.520 Stimulating Hormone (TSH) Digoxin Level 0.4 L Valproic Acid 27 L (Depakene) Level POC Venous 5.1 *H 2.8 *H Lactate Urine Color LIZANDRO Urine Clarity SLIGHTLY CLOUDY A Urine pH 5.0 Urine Specific 1.025 [place] Urine Ketones NEGATIVE Urine Nitrite NEGATIVE Urine Bilirubin NEGATIVE Urine 2+ H Urobilinogen Urine Leukocyte NEGATIVE Esterase Urine 3 Microscopic RBC Urine 3 Microscopic WBC Urine Mucus MANY A Urine NEGATIVE Hemoglobin Urine Glucose NEGATIVE Urine Total 2+ H Protein Test 04/30/18 00:27 04/30/18 05:24 Lactic Acid 2.6 *H 1.2 Level White Blood 14.4 #H Count Red Blood Count 3.61 L Hemoglobin 11.7 L Hematocrit 36.4 L Mean 100.8 Corpuscular Volume Mean 32.4 Corpuscular Hemoglobin Mean 32.1 Corpuscular Hemoglobin Conc ent Red Cell 12.6 Distribution Width Platelet Count 260 Mean Platelet 12.8 H Volume Immature 0.300 Granulocytes % Neutrophils % Segmented 68 Neutrophils % (Manual) Band 21 H Neutrophils % (Manual) Lymphocytes % Lymphocytes % 6 L (Manual) Monocytes % Monocytes % 3 (Manual) Eosinophils % Basophils % Metamyelocytes 2 H % (manual) Nucleated Red 0.0 Blood Cells % Immature 0.050 H Granulocytes # Neutrophils # Neutrophils # 10.2 H (Manual) Band 3.0 H Neutrophils # Lymphocytes 0.8 (Manual) Lymphocytes # Monocytes # Monocytes # 0.4 (Manual) Eosinophils # Basophils # Metamyelocytes 0.2 H # Nucleated Red Blood Cells # Platelet NORMAL Estimate Giant Platelets 1 H Platelet @See below Morphology Comment Polychromasia 1+ Macrocytosis 1+ Sodium Level 147 H Potassium Level 4.1 Chloride Level 113 H Carbon Dioxide 29 Level Anion Gap 5 # Blood Urea 42 H Nitrogen Creatinine 0.83 Est Glomerular Filtrat Rate mL/min Glucose Level 103 # Calcium Level 8.5 Total Bilirubin 0.3 Direct 0.00 Bilirubin Indirect 0.3 Bilirubin Aspartate Amino 18 Transf (AST/SGO T) Alanine 23 Aminotransferas e (ALT/SGPT) Alkaline 92 Phosphatase Total Protein 5.5 #L Albumin 2.6 L Globulin 2.90 Albumin/Globuli 0.89 n Ratio Subjective 24 Hr Interval Summary Free Text/Dictation Patient is nonresponsive. Subjective hx not possible: pt non-verbal, pt critical status Exam/Review of Systems Vital Signs Vitals Vital Signs Date Temp Pulse Resp B/P (MAP) Pulse Ox O2 O2 Flow FiO2 Time Delivery Rate 04/30/18 122 28 112/68 100 12:45 (83) 04/30/18 99.3 Mask 6.0 12:00 Intake and Output 04/29/18 04/29/18 04/30/18 1515:00 23:00 07:00 IntakeIntake Total 1870 ml 1446.4 ml OutputOutput Total 125 ml BalanceBalance 1870 ml 1321.4 ml Exam Constitutional: non-verbal Head: normocephalic, atraumatic Respiratory: clear to auscultation, normal air movement Cardiovascular: regular rate and rhythm, nl pulses Gastrointestinal: other (Abdomen is quiet) Medications Medications Current Medications Ondansetron HCl (Zofran Inj) 4 mg ER BRIDGE PRN IV NAUSEA AND/OR VOMITING; Start 04/29/18 at 21:30; Stop 04/30/18 at 21:29 Acetaminophen (Tylenol Tab) 650 mg ER BRIDGE PRN PO MILD PAIN(1-3)OR ELEVATED TEMP; Start 04/29/18 at 21:30; Stop 04/30/18 at 21:29 Phenylephrine HCl 250 ml @ 75 mls/hr TITRATE IV Last administered on 04/30/18at 11:43; Admin Dose 22.5 MLS/HR; Start 04/30/18 at 00:00 Vancomycin HCl (Vanco Iv Per Pharmacy) VANCOMYCIN PER PHARMACY PER PROTOCOL XX ; Start 04/30/18 at 00:00 Piperacillin Sod/ Tazobactam Sod 100 ml @ 200 mls/hr Q6 IVPB Last administered on 04/30/18at 06:39; Admin Dose 200 MLS/HR; Start 04/30/18 at 02:00 Vancomycin/Sodium Chloride 250 ml @ 125 mls/hr Q24H IVPB ; Start 05/01/18 at 00:00 Lactated Ringer's 1,000 ml @ 70 mls/hr [id number] IV ; Start 04/30/18 at 14:00 Lactated Ringer's 250 ml @ 250 mls/hr Q1H ONCE IV ; Start 04/30/18 at 14:00; Stop 04/30/18 at 14:59 LONNY LARKIN MD Apr 30, 2018 14:28
[2018-04-30] MEDS ORDERED: METOPROLOL 5 MG INJ IV ONE (14:30)
[2018-04-30] MEDS: DIGOXIN 500 MCG INJ IV SCH ×2 (17:13→23:37)
--- NOTE | 2018-04-30 18:51 | NUR ---
eoss PT STABLE ON 6L SIMPLE MASK. PT HR A FIBRILLATION; TRENDING 110'S-150'S THROUGHOUT SHIFT. PER DR. LARKIN, GAVE LOPRESSOR 2.5 MG AND NOW STARTING LOPRESSOR 2.5MG Q8HRS FOR 24 HOURS. PT ALSO GIVEN 2 250ML LACTATED RINGERS BOLUSES. BP WNL, STOPPED SHIRLEY THIS AFTERNOON. PER DR. PANTOJA, STARTED ON DIGOXIN Q6HRS. PT'S COUSINS IS PRIMARY DECISION MAKER, DECIDED THAT SHE DOES NOT WANT ANY CHEST COMPRESSIONS OR SHOCK DONE, ONLY WILL ACCEPT INTUBATION IF PT CODING. LOW GRADE FEVER EARLY AM, COOLING MEASURES INITIATED. TEMP DECLINED THROUGHOUT SHIFT. ALL INFORMATION WILL BE ENDORSED TO POCKET MAKER NURSE.
[2018-04-30] MEDS: METOPROLOL 5 MG INJ IV SCH (21:35)
[2018-05-01] VITALS (27 sets, daily range): BP systolic 87–128; BP diastolic 51–82; PULSE 79–128; RESP 19–37
[2018-05-01] MEDS: VANCOMYCIN 750 MG (PMX) 250 ML IVPB SCH ×2 (00:21→23:06)
[2018-05-01] MEDS: LACTATED RINGER'S 1,000 ML IV SCH (00:21)
--- NOTE | 2018-05-01 00:46 | CONS ---
DATE OF ADMISSION: 04/29/2018 DATE OF CONSULTATION: 04/30/2018 TYPE OF CONSULTATION: Cardiology. REASON FOR CONSULTATION: Atrial fibrillation with rapid ventricular response. REQUESTING PHYSICIAN: Dr. Mayes from the hospitalist service. HISTORY OF PRESENT ILLNESS: The patient is an 84-year-old female with history of dementia, hypertens ion, possible seizure disorder, atrial fibrillation who presented with abdominal pain, no bowel movem ent x3 days. Upon arrival, temperature 98.8, blood pressure of 93/74, pulse 160, respiratory rate 29 , saturating 80%. The patient's labs were notable for white count of 8.2, hemoglobin 13.3, platelet count of 304, a sodium of 145, potassium of 4.2, creatinine 1.0, BUN of 52, AST 20, ALT 9. TSH of 3. 5. INR of 1.1. Digoxin of 0.4. UA negative. The patient underwent a chest x-ray revealing no evid ence of acute cardiopulmonary abnormalities and abdominal pelvic CT revealing moderate amount of free air noted throughout the abdomen. Large amount of free air is also identified within the pelvis and there appears to be a focal area of perforation within the proximal to mid sigmoid colon. Large akira unt of stool noted throughout the sigmoid colon, thickened wall of the right colon, porcelain gallbla dder, cardiomegaly. The patient underwent an EKG revealing atrial fibrillation with rapid ventricula r response, rate of 125, normal axis, normal intervals with lateral ST depressions. The patient was consulted by surgery, but due to comorbidities, not found to be a surgical candidate, has been admitt ed to the ICU, and at this time is DNR. PAST MEDICAL HISTORY: As above in the HPI. MEDICATIONS CURRENTLY IN THE HOSPITAL: 1. Vancomycin. 2. LR at 70 mL an hour. 3. Zosyn. 4. Ahsan-Synephrine just turned off. 5. Vancomycin. 6. Zofran. 7. Tylenol. ALLERGIES: NO KNOWN DRUG ALLERGIES. SOCIAL HISTORY: No current tobacco, ETOH or illicit drug use. FAMILY HISTORY: No history of sudden cardiac or early CAD. REVIEW OF SYSTEMS: As above in the HPI. CONSTITUTIONAL: No current fevers. PULMONARY: Mild respiratory distress. CARDIOVASCULAR: Atrial fibrillation with rapid ventricular response. GASTROINTESTINAL: Likely perforated bowel. GENITOURINARY: Renal insufficiency, improving. PSYCHIATRIC: Documented psych history. NEUROLOGIC: Dementia. HEMATOLOGIC: Anemia, leukocytosis. PHYSICAL EXAMINATION: VITAL SIGNS: Temperature 99, blood pressure most recently of 100/72, pulse 120, respiratory rate 40, saturating 100% on face mask 6 liters. GENERAL: The patient is alert, awake but noncommunicative. NECK: JVP approximately 8 cm of water. CHEST: Fair movement throughout with mildly decreased breath sounds at bases bilaterally. HEART: Irregularly irregular, tachycardic, I/ systolic murmur. ABDOMEN: Distended without tenderness to palpation. EXTREMITIES: Trace edema, 1+ pulses bilateral posterior tibial. LABORATORY DATA: Most recently from today, white count of 12.4, hemoglobin 11.7, platelet count of 2 60. Sodium 147, potassium 4.1, creatinine 0.8, BUN 42. INR 1.1. Toxicology valproic acid of 27. IMAGING STUDIES: As above in the HPI with repeat chest x-ray from today revealing small bilateral ef fusions. IMPRESSION: 1. Atrial fibrillation with a rapid ventricular response in the setting of hypotension, likely devel opment of sepsis with a perforated bowel. 2. Abnormal echocardiogram, assess for acute coronary syndrome. 3. Hypotension, borderline. 4. Perforated bowel. 5. Dehydration. 6. Dementia. 7. Anemia. 8. Leukocytosis. 9. Hypernatremia. RECOMMENDATIONS: 1. At this time, we would maintain the patient in the ICU on close monitoring. 2. Continue the patient's IV fluid hydration. 3. We will follow up the patient's 2D echo done for assessment of ejection fraction, wall motion and major abnormalities. 4. We would complete the patient's rule out for myocardial infarction. 5. We would give patient digoxin doses in order to improve heart rate acutely and continue the [facility]'s very low dose total IV that she has been receiving. Thank you for allowing me to take part in the care of this patient. I will continue to follow very c losely with you with further recommendations to be made as the patient progresses through her [facility] clinical course. Dictated By: LAKEISHA CURTIS/HARDY Conf#: [id number] DID#: [id number] CC: LARON MAYES MD;*EndCC*
--- NOTE | 2018-05-01 02:59 | NUR ---
AOx0; bedridden; VSS except HR which was Afib 100-130; asymptomatic without any complaint during shift; firm abdomen without bowel sound; no s/s of pain; urine output ~15ml/hr; wound care and bed bath done; on 6L simple face mask saturating >92%; continue to monitor and provide total care.
[2018-05-01] MEDS: PIPER-TAZO 3.375 GM IV (PMX) 100 ML IVPB SCH ×4 (05:14→23:06)
[2018-05-01] MEDS: COLLAGENASE 5 GM (UD JAR) TOP SCH (05:14)
[2018-05-01] MEDS: BALSAM PERU/CASTOR OIL 60 GM TUBE TOP SCH (05:15)
[2018-05-01] MEDS: DIGOXIN 500 MCG INJ IV SCH (05:15)
[2018-05-01] MEDS: METOPROLOL 5 MG INJ IV SCH ×4 (05:16→23:06)
[2018-05-01] MEDS: SOD CHLORIDE 0.45% 1,000 ML IV SCH ×2 (08:18→20:39)
--- NOTE | 2018-05-01 08:50 | PN ---
Date/Time of Note Date/Time of Note DATE: 05/01/18 TIME: 08:44 Assessment/Plan VTE Prophylaxis Risk score (from [facility])>0 risk: 6 SCD applied (from [facility]): Yes Pharmacological prophylaxis: NA/contraindicated Pharm contraindication: bleeding Lines/Catheters IV Catheter Type (from [facility]): Central Line Central line still needed: Yes Urinary Cath still in place: Yes Reason Cath still needed: urinary retention Assessment/Plan Problems: (1) Perforated abdominal viscus Onset Date: ~ 04/29/2018 Status: Acute Comment: Pending at the time of this dictation is the abdominal x-ray study. It is marked in the computer as having been taken but nothing is available. Regardless given her advanced premorbid conditions she is still in extremely critical state and not an excellent candidate for surgical intervention. I have discussed her with the general surgeon involved who again reiterates that he will review the case but he is not anticipating changing his position. This is likely going to be a terminal event. (2) Elevated lactic acid level Status: Acute Comment: With aggressive fluid support and antibiotics this is drifted into the upper limits of the normal range. However this does not mean that were out of the damon (3) Septic shock Onset Date: ~ 04/29/2018 Status: Acute Comment: Improved with antibiotics and fluid hydration. Please note the white count is rising even though we have managed to control the lactic acid (4) Prerenal azotemia Status: Acute Comment: Improved significantly although still not at baseline (5) Acute kidney injury Status: Acute Comment: Improved significantly but not at baseline yet. Have to watch for hypernatremia. Were going to go ahead work with the fluids. (6) Bedridden Status: Chronic Comment: Noted. (7) Essential hypertension Status: Chronic Comment: Not hypertensive at this time due to the sepsis. Please note the sepsis is not improving the white count is rising (8) Rapid atrial fibrillation Status: Acute Comment: Much better rate control with a combination of digoxin and very low- dose beta-sangita. Echocardiogram is pending (9) Dementia Status: Chronic Comment: Noted. Qualifiers: Dementia type: unspecified type Dementia behavioral disturbance: without behavioral disturbance Qualified Codes: F03.90 - Unspecified dementia without behavioral disturbance Assessment/Plan Please note that the caregiver is not at the bedside and is not answering the phones at this time Result Diagram: 05/01/18 04305/01/18 0430 Results 24hrs Laboratory Tests Test 04/30/18 18:31 05/01/18 00:27 05/01/18 04:30 Troponin I 0.029 0.030 0.031 White Blood Count 16.3 H Red Blood Count 3.65 L Hemoglobin 11.6 L Hematocrit 37.0 Mean Corpuscular Volume 101.4 H Mean Corpuscular Hemoglobin 31.8 Mean Corpuscular 31.4 L Hemoglobin Concent Red Cell Distribution Width 12.9 Platelet Count 244 Mean Platelet Volume 13.4 H Immature Granulocytes % 0.500 H Neutrophils % Segmented Neutrophils % (Manual) 88 H Band Neutrophils % (Manual) 1 Lymphocytes % Lymphocytes % (Manual) 8 L Reactive Lymphocytes % (Manual) 1 H Monocytes % Monocytes % (Manual) 1 Eosinophils % Eosinophils % (Manual) 1 Basophils % Nucleated Red Blood Cells % 0.0 Immature Granulocytes # 0.080 H Neutrophils # Neutrophils # (Manual) 14.4 H Band Neutrophils # 0.1 Lymphocytes (Manual) 1.3 Lymphocytes # Reactive Lymphocytes # 0.1 H Monocytes # Monocytes # (Manual) 0.1 L Eosinophils # Basophils # Nucleated Red Blood Cells # Platelet Estimate NORMAL Sodium Level 152 H Potassium Level 4.2 Chloride Level 116 H Carbon Dioxide Level 28 Anion Gap 8 Blood Urea Nitrogen 38 H Creatinine 0.78 Est Glomerular Filtrat Rate mL/min Glucose Level 77 Lactic Acid Level 1.9 Calcium Level 9.3 Magnesium Level 2.4 Total Bilirubin Direct Bilirubin Indirect Bilirubin 0.2 Aspartate Amino 16 Transf (AST/SGOT) Alanine 12 L Aminotransferase (ALT/SGPT) Alkaline Phosphatase 75 Total Protein 5.7 L Albumin 2.7 L Globulin 3.00 Albumin/Globulin Ratio 0.90 Subjective 24 Hr Interval Summary Free Text/Dictation Opens eyes on being spoken to. No purposeful response. Please note this matches what the caregivers stated was her baseline state pre-event Subjective hx not possible: pt non-verbal, pt critical status Exam/Review of Systems Vital Signs Vitals Vital Signs Date Temp Pulse Resp B/P (MAP) Pulse Ox O2 O2 Flow FiO2 Time Delivery Rate 05/01/18 89 08:03 05/01/18 32 106/59 97 Nasal 2.0 06:00 (75) Cannula 05/01/18 98.9 04:00 Intake and Output 04/30/18 04/30/1805/01/18 1515:00 23:00 07:00 IntakeIntake Total 819 ml 1257 ml 940 ml OutputOutput Total 211 ml 114 ml 145 ml BalanceBalance 608 ml 1143 ml 795 ml Exam Arousable looks around Head: normocephalic, atraumatic Eyes: nl conjunctiva, EOMI, nl lids, nl sclera, PERRL ENMT: other Neck: supple, non-tender, other (Central line and) Respiratory: clear to auscultation, normal air movement Cardiovascular: nl pulses, irregular rhythm Gastrointestinal: nl liver, spleen, other (Bowel sounds are active. The patient is nonverbal but she does appear to wince when the upper quadrant is examined in the right lower quadrant) Extremities: normal pulses Neurological: other (Poorly responsive) Medications Medications Current Medications Phenylephrine HCl 250 ml @ 75 mls/hr TITRATE IV Last administered on 04/30/18at 11:43; Admin Dose 22.5 MLS/HR; Start 04/30/18 at 00:00 Vancomycin HCl (Vanco Iv Per Pharmacy) VANCOMYCIN PER PHARMACY PER PROTOCOL XX ; Start 04/30/18 at 00:00 Piperacillin Sod/ Tazobactam Sod 100 ml @ 200 mls/hr Q6 IVPB Last administered on 05/01/18at 05:14; Admin Dose 200 MLS/HR; Start 04/30/18 at 02:00 Vancomycin/Sodium Chloride 250 ml @ 125 mls/hr Q24H IVPB Last administered on 05/01/18at 00:21; Admin Dose 125 MLS/HR; Start 05/01/18 at 00:00 Metoprolol Tartrate (Lopressor) 2.5 mg Q8 IV Last administered on 05/01/18at 05:16; Admin Dose 2.5 MG; Start 04/30/18 at 22:00; Stop 05/01/18 at 21:59 Collagenase (Santyl) 1 applic DAILY TOP Last administered on 05/01/18at 05:14; Admin Dose 1 APPLIC; Start 05/01/18 at 04:30 Sodium Chloride 1,000 ml @ 80 mls/hr [id number] IV Last administered on 05/01/18at 08:18; Admin Dose 80 MLS/HR; Start 05/01/18 at 08:00 LONNY LARKIN MD May 01, 2018 08:50
[2018-05-01] MEDS ORDERED: DEXTROSE 5% WATER 500 ML BAG IV ONE (09:00)
--- NOTE | 2018-05-01 11:55 | CONS ---
Date/Time of Note Date/Time of Note DATE: 05/01/18 TIME: 11:50 Assessment/Plan Assessment/Plan Hospital Course IMPRESSION: 1. Atrial fibrillation with a rapid ventricular response in the setting of hypotension, likely development of sepsis with a perforated bowel.-nopw improved HR s/p digoxin doses x 3 2. Abnormal echocardiogram, assess for acute coronary syndrome.-nicolas trop x 3 3. Hypotension, borderline-ongoing 4. Perforated bowel. 5. Dehydration. 6. Dementia. 7. Anemia. 8. Leukocytosis. 9. Hypernatremia. Recc: -ICU -Continue current IVP BB as tolerated -Continue abxs's and f/u cx data -off pressors will f/u bp closely -Will f/u echo Result Diagram: 05/01/18 0430 05/01/18 0430 Results 24hrs Laboratory Tests Test 04/30/18 18:31 05/01/18 00:27 05/01/18 04:30 Troponin I 0.029 0.030 0.031 White Blood Count 16.3 H Red Blood Count 3.65 L Hemoglobin 11.6 L Hematocrit 37.0 Mean Corpuscular Volume 101.4 H Mean Corpuscular Hemoglobin 31.8 Mean Corpuscular 31.4 L Hemoglobin Concent Red Cell Distribution Width 12.9 Platelet Count 244 Mean Platelet Volume 13.4 H Immature Granulocytes % 0.500 H Neutrophils % Segmented Neutrophils % (Manual) 88 H Band Neutrophils % (Manual) 1 Lymphocytes % Lymphocytes % (Manual) 8 L Reactive Lymphocytes % (Manual) 1 H Monocytes % Monocytes % (Manual) 1 Eosinophils % Eosinophils % (Manual) 1 Basophils % Nucleated Red Blood Cells % 0.0 Immature Granulocytes # 0.080 H Neutrophils # Neutrophils # (Manual) 14.4 H Band Neutrophils # 0.1 Lymphocytes (Manual) 1.3 Lymphocytes # Reactive Lymphocytes # 0.1 H Monocytes # Monocytes # (Manual) 0.1 L Eosinophils # Basophils # Nucleated Red Blood Cells # Platelet Estimate NORMAL Sodium Level 152 H Potassium Level 4.2 Chloride Level 116 H Carbon Dioxide Level 28 Anion Gap 8 Blood Urea Nitrogen 38 H Creatinine 0.78 Est Glomerular Filtrat Rate mL/min Glucose Level 77 Lactic Acid Level 1.9 Calcium Level 9.3 Magnesium Level 2.4 Total Bilirubin Direct Bilirubin Indirect Bilirubin 0.2 Aspartate Amino 16 Transf (AST/SGOT) Alanine 12 L Aminotransferase (ALT/SGPT) Alkaline Phosphatase 75 Total Protein 5.7 L Albumin 2.7 L Globulin 3.00 Albumin/Globulin Ratio 0.90 Consultation Date/Type/Reason Admit Date/Time Apr 29, 2018 at 21:16 Initial Consult Date 04/30/18 Type of Consult cardiology Reason for Consultation AF Requesting Provider: ROSANNE DODD MD Exam/Review of Systems Vital Signs Vitals Vital Signs Date Temp Pulse Resp B/P (MAP) Pulse Ox O2 O2 Flow FiO2 Time Delivery Rate 05/01/18 89 08:03 05/01/18 32 106/59 97 Nasal 2.0 06:00 (75) Cannula 05/01/18 98.9 04:00 Intake and Output 04/30/18 04/30/18 05/01/18 1515:00 23:00 07:00 IntakeIntake Total 819 ml 1257 ml 1010 ml OutputOutput Total 211 ml 114 ml 145 ml BalanceBalance 608 ml 1143 ml 865 ml Exam Review of Systems: CONSTITUTIONAL: No fevers, chills. PULMONARY: No sob CARDIOVASCULAR: No chest pain/palpitations GASTROINTESTINAL: No nausea/vomiting. GENITOURINARY: No hematuria/dysuria. MUSCULOSKELETAL: No myagias/arthalgias. PSYCHIATRIC: The patient denies depression. NEUROLOGIC: No weakness Constitutional: other (sleepiong) Psych: no complaints Head: normocephalic ENMT: mucosa pink and moist Neck: supple, jvd (9 cm water) Respiratory: diminished breath sounds (at bases/B) Cardiovascular: irregular rhythm Gastrointestinal: soft, non-tender Musculoskeletal: muscle tone (normal) Extremities: edema (none) Neurological: other (No focal deficits) Medications Medications Current Medications Phenylephrine HCl 250 ml @ 75 mls/hr TITRATE IV Last administered on 04/30/18at 11:43; Admin Dose 22.5 MLS/HR; Start 04/30/18 at 00:00 Vancomycin HCl (Vanco Iv Per Pharmacy) VANCOMYCIN PER PHARMACY PER PROTOCOL XX ; Start 04/30/18 at 00:00 Piperacillin Sod/ Tazobactam Sod 100 ml @ 200 mls/hr Q6 IVPB Last administered on 05/01/18at 05:14; Admin Dose 200 MLS/HR; Start 04/30/18 at 02:00 Vancomycin/Sodium Chloride 250 ml @ 125 mls/hr Q24H IVPB Last administered on 05/01/18at 00:21; Admin Dose 125 MLS/HR; Start 05/01/18 at 00:00 Metoprolol Tartrate (Lopressor) 2.5 mg Q8 IV Last administered on 05/01/18at 05:16; Admin Dose 2.5 MG; Start 04/30/18 at 22:00; Stop 05/01/18 at 21:59 Collagenase (Santyl) 1 applic DAILY TOP Last administered on 05/01/18at 05:14; Admin Dose 1 APPLIC; Start 05/01/18 at 04:30 Sodium Chloride 1,000 ml @ 80 mls/hr [id number] IV Last administered on 05/01/18at 08:18; Admin Dose 80 MLS/HR; Start 05/01/18 at 08:00 LAKEISHA PANTOJA May 01, 2018 11:55
--- NOTE | 2018-05-01 15:57 | RADRPT ---
Echocardiogram Report Patient Name: GUI HERR Gender: Female Date: 26-Jan-1934 Study Date: 01-May-2018 Reservations Agent: Neftali Og RDCS Location: [facility] Ref. Physician: LAKEISHA LAND Quality: Adequate Procedures: Transthoracic echocardiogram with complete 2D, M-Mode, and doppler examination. Indications: Hypotension. 2D/M Mode Doppler Measurement Value Normal Ranges Measurement Value Normal Ranges LVIDd 2D 3.5 3.5 - 5.6 cm AV Peak Fred 2.5 m/sec LVIDs 2D 2.2 2.1 - 4.1 cm AV Peak PG 26.0 mmHg FS 2D 39.0 % LVOT Peak Fred 3.3 m/sec LVPWd 2D 1.0 0.6 - 1.1 cm LVOT Peak PG 44.0 mmHg IVSd 2D 1.1 0.6 - 1.1 cm MV E Peak Fred 1.1 m/sec IVS/LVPW 2D 1.1 TV E Peak Fred 0.6 m/sec AoR Diam 2D 1.9 2.0 - 3.7 cm TR Peak Fred 3.0 m/sec LA/Ao 2D 2 0 - 1 TR Peak PG 36.0 mmHg EDV 2D 44.4 cm3 RVSP 36.0 mmHg ESV 2D 10.1 cm3 RA Pressure 3.0 LA Dimen 2D 3.7 2.3 - 4.0 cm Findings Left Ventricle: Normal left ventricular systolic function. Normal left ventricular cavity size. Mild concentric left ventricular hypertrophy. Ejection fraction is visually estimated at 6065 %. Right Ventricle: Normal right ventricular size. Normal right ventricular systolic function. Left Atrium: Upper limit of normal left atrial size. Right Atrium: The right atrium is normal in size. Mitral Valve: Normal appearance of the mitral valve. Mild mitral annular calcification. Trace mitral regurgitation. Aortic Valve: Aortic cusps appear mildly calcified. Mild aortic valve regurgitation. Tricuspid Valve: Normal appearance of the tricuspid valve. There is mild to moderate tricuspid regurgitation. Pulmonic Valve: Normal pulmonic valve appearance. No evidence of pulmonic regurgitation. Pericardium: Trivial pericardial effusion. Aorta: Normal aortic root. IVC: Normal size and normal respiratory collapse consistent with normal right atrial pressure. Conclusions Normal left ventricular systolic function. Normal left ventricular cavity size. Mild concentric left ventricular hypertrophy. Ejection fraction is visually estimated at 60-65 %. Normal appearance of the mitral valve. Mild mitral annular calcification. Trace mitral regurgitation. Aortic cusps appear mildly calcified. Mild aortic valve regurgitation. Normal appearance of the tricuspid valve. There is mild to moderate tricuspid regurgitation. Electronically Signed By: Lakeisha Land 01-May-2018 15:56:13 -0800 Patient Name: GUI HERR Study Date: 01-May-2018 [id number]
[2018-05-01] MEDS ORDERED: IOHEXOL 14.3 MG(I)/ML (ADULT) BTL PO ONE (16:00)
--- NOTE | 2018-05-01 16:34 | NUR ---
MD COMMUNICATION: DR LARKIN ORDERED C/T ABDOMEN WITH PO CONTRAST; PT UNABLE TO TAKE MORE THAN A COUPLE SIPS OF WATER SO PER MD DO NOT PLACE NGT AND DO NOT GIVE ORAL CONTRAST; JUST GET THE CT.
--- NOTE | 2018-05-01 18:49 | NUR ---
NURSE NOTE: PT REMAINS ALERT TO PERSON, OPENS HER EYES TO VOICE AND TRACKS, DOES NOT FOLLOW COMMANDS; REPEAT CT DONE; PT'S COUSIN'S IS THE ONLY FAMILY MEMBER; SHE VISITED TODAY AND SEEMED UNKNOWING OF PATIENT'S CONDITION; NURSE REEDUCATED ABOUT PT STATUS; URINE OUTPUT MARGINAL, 20 ML/HR; 500cc BOLUS OF D5W GIVEN TODAY AND THEN CONTINUED FLUIDS 1/2NS @ 80 ML/HR; NO BOWEL MOVEMENT, NPO.
[2018-05-01] MEDS ORDERED: LATANOPROST 0.005% 2.5 ML OPH BOTH EYES SCH (23:00)
[2018-05-02] VITALS (30 sets, daily range): BP systolic 93–153; BP diastolic 56–93; PULSE 70–120; RESP 17–35
[2018-05-02] MEDS: METOPROLOL 5 MG INJ IV SCH ×4 (05:24→20:37)
[2018-05-02] MEDS: PIPER-TAZO 3.375 GM IV (PMX) 100 ML IVPB SCH ×4 (05:24→23:25)
[2018-05-02] MEDS: COLLAGENASE 5 GM (UD JAR) TOP SCH (08:36)
[2018-05-02] MEDS: BALSAM PERU/CASTOR OIL 60 GM TUBE TOP SCH (08:36)
[2018-05-02] MEDS: SOD CHLORIDE 0.45% 1,000 ML IV SCH ×2 (08:37→13:12)
--- NOTE | 2018-05-02 12:47 | CONS ---
Date/Time of Note Date/Time of Note DATE: 05/02/18 TIME: 12:38 Assessment/Plan Assessment/Plan Hospital Course IMPRESSION: 1. Atrial fibrillation with a rapid ventricular response in the setting of hypotension, likely development of sepsis with a perforated bowel.-some recurrent mild RVR 2. Abnormal echocardiogram, assess for acute coronary syndrome.-nicolas trop x 3 3. Hypotension,-overall improved 4. Perforated bowel. 5. Dehydration. 6. Dementia. 7. Anemia. 8. Leukocytosis. 9. Hypernatremia. Recc: -ICU -Continue current IVP BB as tolerated and will make slight increase to frequency and dose -Continue abxs's and f/u cx data -off pressors will f/u bp closely Result Diagram: 05/02/1843105/02/182 Results 24hrs Laboratory Tests Test 05/02/18 04:32 White Blood Count 16.7 H Red Blood Count 3.35 L Hemoglobin 10.4 L Hematocrit 32.5 L Mean Corpuscular Volume 97.0 Mean Corpuscular Hemoglobin 31.0 Mean Corpuscular Hemoglobin Concent 32.0 Red Cell Distribution Width 13.1 Platelet Count 240 Mean Platelet Volume 13.0 H Immature Granulocytes % 0.900 H Neutrophils % Segmented Neutrophils % (Manual) 68 Band Neutrophils % (Manual) 17 H Lymphocytes % Lymphocytes % (Manual) 10 L Monocytes % Monocytes % (Manual) 3 Eosinophils % Basophils % Metamyelocytes % (manual) 1 H Myelocytes % (Manual) 1 H Nucleated Red Blood Cells % 0.0 Immature Granulocytes # 0.150 H Neutrophils # Neutrophils # (Manual) 11.8 H Band Neutrophils # 2.8 H Lymphocytes (Manual) 1.6 Lymphocytes # Monocytes # Monocytes # (Manual) 0.5 Eosinophils # Basophils # Metamyelocytes # 0.1 H Myelocytes # 0.1 H Nucleated Red Blood Cells # Platelet Estimate NORMAL Giant Platelets 3 H Polychromasia 2+ Anisocytosis 1+ Macrocytosis 1+ Sodium Level 147 H Potassium Level 3.6 Chloride Level 116 H Carbon Dioxide Level 25 Anion Gap 6 Blood Urea Nitrogen 37 H Creatinine 0.58 Est Glomerular Filtrat Rate mL/min Glucose Level 91 Lactic Acid Level 1.2 Calcium Level 8.9 Total Bilirubin 0.3 Direct Bilirubin 0.00 Indirect Bilirubin 0.3 Aspartate Amino Transf (AST/SGOT) 20 Alanine Aminotransferase (ALT/SGPT) 13 Alkaline Phosphatase 59 Total Protein 4.4 #L Albumin 2.0 L Globulin 2.40 Albumin/Globulin Ratio 0.83 Consultation Date/Type/Reason Admit Date/Time Apr 29, 2018 at 21:16 Initial Consult Date 04/30/18 Type of Consult cardiology Reason for Consultation AF Requesting Provider: ROSANNE DODD MD Exam/Review of Systems Vital Signs Vitals Vital Signs Date Temp Pulse Resp B/P (MAP) Pulse Ox O2 O2 Flow FiO2 Time Delivery Rate 05/02/18 100 35 134/75 100 Nasal 11:00 (94) Cannula 05/02/18 2.0 08:00 05/02/18 98.7 08:00 Intake and Output 05/01/18 05/01/18 05/02/18 1515:00 23:00 07:00 IntakeIntake Total 660 ml 480 ml 1090 ml OutputOutput Total 160 ml 155 ml 135 ml BalanceBalance 500 ml 325 ml 955 ml Exam Review of Systems: CONSTITUTIONAL: No fevers, chills. PULMONARY: No sob CARDIOVASCULAR: No chest pain/palpitations GASTROINTESTINAL: No nausea/vomiting. GENITOURINARY: No hematuria/dysuria. MUSCULOSKELETAL: No myagias/arthalgias. PSYCHIATRIC: The patient denies depression. NEUROLOGIC: No weakness Constitutional: alert Psych: no complaints Head: normocephalic ENMT: mucosa pink and moist Neck: supple, jvd (9 cm water) Respiratory: diminished breath sounds (at bases/B) Cardiovascular: regular rate and rhythm Gastrointestinal: soft, non-tender Musculoskeletal: muscle tone (normal) Extremities: edema (none) Neurological: other (No focal deficits) Medications Medications Current Medications Vancomycin HCl (Vanco Iv Per Pharmacy) VANCOMYCIN PER PHARMACY PER PROTOCOL XX ; Start 04/30/18 at 00:00 Piperacillin Sod/ Tazobactam Sod 100 ml @ 200 mls/hr Q6 IVPB Last administered on 05/02/18at 05:24; Admin Dose 200 MLS/HR; Start 04/30/18 at 02:00 Vancomycin/Sodium Chloride 250 ml @ 125 mls/hr Q24H IVPB Last administered on 05/01/18at 23:06; Admin Dose 125 MLS/HR; Start 05/01/18 at 00:00 Collagenase (Santyl) 1 applic DAILY TOP Last administered on 05/02/18at 08:36; Admin Dose 1 APPLIC; Start 05/01/18 at 04:30 Sodium Chloride 1,000 ml @ 80 mls/hr [id number] IV Last administered on 05/01/18at 20:39; Admin Dose 80 MLS/HR; Start 05/01/18 at 08:00 Metoprolol Tartrate (Lopressor) 2.5 mg Q6 IV Last administered on 05/02/18at 05:24; Admin Dose 2.5 MG; Start 05/01/18 at 12:00 Miscellaneous Information (*Rx Drug Level Order Reminder*) VANCOMYCIN TROUGH AT 2300 ONCE ONCE XX ; Start 05/02/18 at 23:00; Stop 05/02/18 at 23:01 LAKEISHA PANTOJA May 02, 2018 12:47
--- NOTE | 2018-05-02 14:22 | NUR ---
SS NOTE: CONSULT RECEIVED ORDER TO F/U WITH PT TO DETERMINE FAMILY INVOLVEMENT AND SPOKESPERSON FOR PT. PT ADMITTED DUE TO RAPID AFIB. PT CURRENTLY AROUSABLE BUT NOT VERBAL. KERON MET WITH ANNIE ADQUAN) AT PT'S BEDSIDE. DORA REPORTED THAT SHE IS PT'S COUSIN. SW ATTEMPTED TO CLARIFY HER RELATIONSHIP WITH PT AND SHE SAID HER IS PT'S COUSIN. SW INQUIRED IF HER IS PT'S COUSIN OR NEPHEW, DORA REPORTED THAT HE IS THE NEPHEW BUT STATED THAT SHE DOESN'T WANT TO GET INTO THE DETAILS. SW EXPLAINED THAT IT MAKES A DIFFERENCE TO HER RELATIONSHIP WITH PT. DORA REPORTED THAT PT HAS BEEN LIVING WITH HER FOR 4 YRS. SHE STATED THAT PT MIGHT HAVE CHILDREN BUT SHE HAS NEVER SEEN THEM AND DOES NOT HAVE ANY CONTACT WITH THEM. 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 DORA REPORTED THAT PT HAS BEEN LIVING WITH HER AND SHE HAS BEEN HAVING PROBLEMS WITH BOWL MOVEMENTS. STATED THAT SHE DOES NOT RELIEVE HER BOWELS AND DORA HAS TO MANUALLY CLEAN HER OUT. STATED THAT SHE HAS BEEN TOLD THAT PT HAS "HOLES" IN HER BOWELS AND THAT SHE IS "GOING TO ". DORA EXPRESSED HER FRUSTRATION STATING THAT WHAT IS SEEN IN THE ULTRASOUND IS "NOT HOLES" BUT THEY ARE "DRIED UP POOP". STATED THAT SHE WANTS THE DOCTOR TO GO IN AND CLEAN IT OUT. STATED THAT IF SOMETHING HAPPENS TO PT BECAUSE THEY ARE NOT CLEANING HER THEN SHE WILL CALL MEDICARE AND COMPLAIN ABOUT THE HOSPITAL AND ALL THE DOCTORS WHO ARE INVOLVED. DORA REPORTED THAT PT HAS AN PRODUCTIVITY ENGINEER AND SHE WILL CONTACT HIM WELL. SW INQUIRED ABOUT THE PRODUCTIVITY ENGINEER AND ASKED IF HE HAS AHCD FOR PT. ACCORDING TO DORA, PT NEVER THOUGHT ABOUT "THOSE THINGS". SW INQUIRED IF THE PRODUCTIVITY ENGINEER CAN BE CONTACTED, DORA REPORTED THAT SHE DOES NOT KNOW WHO IT IS AND SHE WAS NEVER ALLOWED TO HEAR THEIR CONVERSATIONS. DORA CONTINUED TO STATED THAT THE DOCTORS NEED TO CLEAN OUT PT'S BOWELS. STATED THAT IF "PT IS GOING TO ANYWAY WHY DON'T THEY JUST CLEAN HER OUT". KERON EXPLAINED THAT IT MIGHT NOT BE THE APPROPRIATE TREATMENT FOR PT AND IT WOULD BE SOMETHING THAT MD WOULD HAVE TO ASSESS BEFORE DOING IT. DORA AGAIN STATED THAT IF THEY DON'T DO WHAT SHE HAS BEEN ASKING THEN SHE WILL CALL MEDICARE AND COMPLAIN. DORA STATED THAT SHE IS NOT ABLE TO WAIT FOR MD TO COME AND MEET WITH HER BECAUSE IT IS NEW YEARS VIVEK AND SHE NEEDS TO PREPARE. STATED THAT MD NEEDS TO CALL HER OR HER DTR, REBECA DORA DOES NOT SPEAK VIET[place]ESE VERY WELL AND HER DTR WOULD BE ABLE TO UNDERSTAND BETTER. SW UPDATED RN, DAVONTE AND DR. EVANS.
--- NOTE | 2018-05-02 17:27 | PN ---
Date/Time of Note Date/Time of Note DATE: 05/02/18 TIME: 17:23 Assessment/Plan VTE Prophylaxis Risk score (from [facility] [place]0 risk: 11 SCD applied (from [facility] [place]): Yes Pharmacological prophylaxis: NA/contraindicated Pharm contraindication: surgical contra Assessment/Plan Assessment/Plan 1. Perforated abdominal viscus Surgery consultation appreciated, patient is a high surgical risk and has a poor overall prognosis considering her comorbidities and hence surgery has been deferred 2. Septic shock with lactic acidosis Continue antibiotics and IV fluids 3. Acute kidney injury likely secondary to sepsis-resolved 4. 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 Rapid A. fib-improved Continue digoxin and beta-sangita Prophylaxis: SCDs DC planning: gum worker following and coordinating complex family dynamics Result Diagram: 05/02/18 0432 05/02/18 0432 Results 24hrs Laboratory Tests Test 05/02/18 04:32 White Blood Count 16.7 H Red Blood Count 3.35 L Hemoglobin 10.4 L Hematocrit 32.5 L Mean Corpuscular Volume 97.0 Mean Corpuscular Hemoglobin 31.0 Mean Corpuscular Hemoglobin Concent 32.0 Red Cell Distribution Width 13.1 Platelet Count 240 Mean Platelet Volume 13.0 H Immature Granulocytes % 0.900 H Neutrophils % Segmented Neutrophils % (Manual) 68 Band Neutrophils % (Manual) 17 H Lymphocytes % Lymphocytes % (Manual) 10 L Monocytes % Monocytes % (Manual) 3 Eosinophils % Basophils % Metamyelocytes % (manual) 1 H Myelocytes % (Manual) 1 H Nucleated Red Blood Cells % 0.0 Immature Granulocytes # 0.150 H Neutrophils # Neutrophils # (Manual) 11.8 H Band Neutrophils # 2.8 H Lymphocytes (Manual) 1.6 Lymphocytes # Monocytes # Monocytes # (Manual) 0.5 Eosinophils # Basophils # Metamyelocytes # 0.1 H Myelocytes # 0.1 H Nucleated Red Blood Cells # Platelet Estimate NORMAL Giant Platelets 3 H Polychromasia 2+ Anisocytosis 1+ Macrocytosis 1+ Sodium Level 147 H Potassium Level 3.6 Chloride Level 116 H Carbon Dioxide Level 25 Anion Gap 6 Blood Urea Nitrogen 37 H Creatinine 0.58 Est Glomerular Filtrat Rate mL/min Glucose Level 91 Lactic Acid Level 1.2 Calcium Level 8.9 Total Bilirubin 0.3 Direct Bilirubin 0.00 Indirect Bilirubin 0.3 Aspartate Amino Transf (AST/SGOT) 20 Alanine Aminotransferase (ALT/SGPT) 13 Alkaline Phosphatase 59 Total Protein 4.4 #L Albumin 2.0 L Globulin 2.40 Albumin/Globulin Ratio 0.83 Subjective 24 Hr Interval Summary Subjective hx not possible: pt non-verbal Exam/Review of Systems Vital Signs Vitals Vital Signs Date Temp Pulse Resp B/P (MAP) Pulse Ox O2 O2 Flow FiO2 Time Delivery Rate 05/02/18 94 31 101/67 100 Nasal 17:00 (78) Cannula 05/02/18 99.1 16:00 05/02/18 2.0 08:00 Intake and Output 05/01/18 05/01/18 05/02/18 1515:00 23:00 07:00 IntakeIntake Total 660 ml 480 ml 1090 ml OutputOutput Total 160 ml 155 ml 135 ml BalanceBalance 500 ml 325 ml 955 ml Exam Constitutional: non-verbal Respiratory: clear to auscultation Cardiovascular: regular rate and rhythm Gastrointestinal: soft; No distended Musculoskeletal: nl extremities to inspection Medications Medications Current Medications Vancomycin HCl (Vanco Iv Per Pharmacy) VANCOMYCIN PER PHARMACY PER PROTOCOL XX ; Start 04/30/18 at 00:00 Piperacillin Sod/ Tazobactam Sod 100 ml @ 200 mls/hr Q6 IVPB Last administered on 05/02/18at 17:16; Admin Dose 200 MLS/HR; Start 04/30/18 at 02:00 Vancomycin/Sodium Chloride 250 ml @ 125 mls/hr Q24H IVPB Last administered on 05/01/18at 23:06; Admin Dose 125 MLS/HR; Start 05/01/18 at 00:00 Collagenase (Santyl) 1 applic DAILY TOP Last administered on 05/02/18at 08:36; Admin Dose 1 APPLIC; Start 05/01/18 at 04:30 Sodium Chloride 1,000 ml @ 80 mls/hr [id number] IV Last administered on 05/02/18at 13:12; Admin Dose 80 MLS/HR; Start 05/01/18 at 08:00 Miscellaneous Information (*Rx Drug Level Order Reminder*) VANCOMYCIN TROUGH AT 2300 ONCE ONCE XX ; Start 05/02/18 at 23:00; Stop 05/02/18 at 23:01 Metoprolol Tartrate (Lopressor) 5 mg Q4 IV Last administered on 05/02/18at 17:19; Admin Dose 5 MG; Start 05/02/18 at 13:00 SHARON AMBRIZ May 02, 2018 17:27
--- NOTE | 2018-05-02 18:40 | NUR ---
END OF SHIFT: All needs attended. No significant change in condition. Patient remains stable during the shift. Patient is for transfer to Med-Surg, but patient with new order for Metoprolol 5mgs IV [id number] from Dr. Land. Dr. Beckett made aware. Patient will go to tele instead. Turned and repositioned patient [id number]. Patient tolerated well. No new wound identified. Will endorse to incoming shift RN.
[2018-05-03] VITALS (16 sets, daily range): BP systolic 114–147; BP diastolic 62–84; PULSE 82–108; RESP 18–34
[2018-05-03] MEDS: VANCOMYCIN 750 MG (PMX) 250 ML IVPB SCH (00:16)
[2018-05-03] MEDS: METOPROLOL 5 MG INJ IV SCH ×6 (00:16→21:29)
[2018-05-03] MEDS: SOD CHLORIDE 0.45% 1,000 ML IV SCH ×2 (04:18→19:09)
--- NOTE | 2018-05-03 06:00 | NUR ---
RECEIVED PT FROM ICU. PT IS NON VERBAL. NO SIGNS OF ANY DISTRESS. WILL CONTINUE TO MONITOR
[2018-05-03] MEDS: PIPER-TAZO 3.375 GM IV (PMX) 100 ML IVPB SCH ×3 (06:37→17:31)
--- NOTE | 2018-05-03 07:23 | NUR ---
Vancomycin per Rx Vancomycin trough = 8.7 SCr 0.60 Change Vancomycin to 1gm IV q24h
[2018-05-03] MEDS: COLLAGENASE 5 GM (UD JAR) TOP SCH (09:07)
[2018-05-03] MEDS: BALSAM PERU/CASTOR OIL 60 GM TUBE TOP SCH (09:07)
--- NOTE | 2018-05-03 11:21 | PN ---
Date/Time of Note Date/Time of Note DATE: 05/03/18 TIME: 11:19 Assessment/Plan VTE [place]axis [place] [facility] [place]: 9 [place] [facility] [place] Yes Pharmacological prophylaxis: NA/contraindicated Pharm contraindication: other Assessment/Plan Hospital Course 1. Perforated abdominal viscus Surgery consultation appreciated, patient is a high surgical risk and has a poor overall prognosis considering her comorbidities and hence surgery has been deferred 2. Septic shock with lactic acidosis Continue antibiotics and IV fluids 3. Acute kidney injury likely secondary to sepsis-resolved 4. 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 Rapid A. fib-improved Continue digoxin and beta-sangita Prophylaxis: SCDs DC planning: community mental health social worker following and coordinating complex family dynamics Result Diagram: 05/03/1842905/03/18 0430 Results 24hrs Laboratory Tests Test 05/02/18 23:04 05/03/18 04:30 Vancomycin Level Trough 8.7 L White Blood Count 19.6 H Red Blood Count 3.58 L Hemoglobin 11.4 L Hematocrit 34.6 L Mean Corpuscular Volume 96.6 Mean Corpuscular Hemoglobin 31.8 Mean Corpuscular Hemoglobin Concent 32.9 Red Cell Distribution Width 13.3 Platelet Count 319 # Mean Platelet Volume 12.0 H Immature Granulocytes % 1.700 H Neutrophils % 85.8 H Lymphocytes % 7.4 L Monocytes % 4.5 Eosinophils % 0.1 Basophils % 0.5 Nucleated Red Blood Cells % 0.0 Immature Granulocytes # 0.340 H Neutrophils # 16.8 H Lymphocytes # 1.4 Monocytes # 0.9 Eosinophils # 0.0 Basophils # 0.1 Nucleated Red Blood Cells # 0.0 Sodium Level 149 H Potassium Level 3.1 L Chloride Level 118 H Carbon Dioxide Level 23 Anion Gap 8 Blood Urea Nitrogen 35 H Creatinine 0.60 Est Glomerular Filtrat Rate mL/min Glucose Level 88 Calcium Level 8.9 Phosphorus Level 3.2 Magnesium Level 2.1 Subjective 24 Hr Interval Summary Subjective hx not possible: pt non-verbal Exam/Review of Systems Vital Signs Vitals Vital Signs Date Temp Pulse Resp B/P (MAP) Pulse Ox O2 O2 Flow FiO2 Time Delivery Rate 05/03/18 82 08:12 05/03/18 100.2 18 147/75 96 08:02 (99) 1/1/19 Nasal 2.0 06:00 Cannula Intake and Output 05/02/18 05/02/18 05/03/18 1414:59 22:59 06:59 IntakeIntake Total 660 ml 660 ml 910 ml OutputOutput Total 130 ml 120 ml 140 ml BalanceBalance 530 ml 540 ml 770 ml Exam Constitutional: non-verbal Respiratory: clear to auscultation Cardiovascular: regular rate and rhythm Gastrointestinal: soft; No distended Musculoskeletal: nl extremities to inspection Medications Medications Current Medications Vancomycin HCl (Vanco Iv Per Pharmacy) VANCOMYCIN PER PHARMACY PER PROTOCOL XX ; Start 04/30/18 at 00:00 Piperacillin Sod/ Tazobactam Sod 100 ml @ 200 mls/hr Q6 IVPB Last administered on 05/03/18 06:37; Admin Dose 200 MLS/HR; Start 04/30/18 at 02:00 Collagenase (Santyl) 1 applic DAILY TOP Last administered on 05/03/18 09:07; Admin Dose 1 APPLIC; Start 05/01/18 at 04:30 Sodium Chloride 1,000 ml @ 80 mls/hr [id number] IV Last administered on 05/03/18 04:18; Admin Dose 80 MLS/HR; Start 05/01/18 at 08:00 Metoprolol Tartrate (Lopressor) 5 mg Q4 IV Last administered on 05/03/18 09:06; Admin Dose 5 MG; Start 05/02/18 at 13:00 Vancomycin HCl 250 ml @ 125 mls/hr Q24H IVPB ; Start 05/04/18 at 00:00 SHARON AMBRIZ May 03, 2018 11:21
--- NOTE | 2018-05-03 12:25 | RADRPT ---
Vent Rate: 102 bpm RR Interval: 0 msec WV Interval: 0 msec QRS Duration: 72 msec QT Interval: 266 msec QTC Interval: 346 msec P-R-T [place]: 0 - -6 - 174 degrees Atrial fibrillation with rapid ventricular response Septal infarct , age undetermined Abnormal ECG Electronically Signed By: Ayo Steele [id number]
--- NOTE | 2018-05-03 14:27 | CONS ---
Date/Time of Note Date/Time of Note DATE: 05/03/18 TIME: 14:23 Assessment/Plan Assessment/Plan Hospital Course IMPRESSION: 1. Atrial fibrillation with a rapid ventricular response in the setting of hypotension, likely development of sepsis with a perforated bowel.-some recurrent mild RVR 2. Abnormal echocardiogram, assess for acute coronary syndrome.-nicolas trop x 3 3. Hypotension,-overall improved 4. Perforated bowel. 5. Dehydration. 6. Dementia. 7. Anemia. 8. Leukocytosis. 9. Hypernatremia. Recc: -Tele -Continue current IVP BB as tolerated and will make slight increase to frequency and dose -Continue abxs's and f/u cx data -off pressors will f/u bp closely Result Diagram: 05/03/18 0430 05/03/18 0430 Results 24hrs Laboratory Tests Test 05/02/18 23:04 05/03/18 04:30 Vancomycin Level Trough 8.7 L White Blood Count 19.6 H Red Blood Count 3.58 L Hemoglobin 11.4 L Hematocrit 34.6 L Mean Corpuscular Volume 96.6 Mean Corpuscular Hemoglobin 31.8 Mean Corpuscular Hemoglobin Concent 32.9 Red Cell Distribution Width 13.3 Platelet Count 319 # Mean Platelet Volume 12.0 H Immature Granulocytes % 1.700 H Neutrophils % 85.8 H Lymphocytes % 7.4 L Monocytes % 4.5 Eosinophils % 0.1 Basophils % 0.5 Nucleated Red Blood Cells % 0.0 Immature Granulocytes # 0.340 H Neutrophils # 16.8 H Lymphocytes # 1.4 Monocytes # 0.9 Eosinophils # 0.0 Basophils # 0.1 Nucleated Red Blood Cells # 0.0 Sodium Level 149 H Potassium Level 3.1 L Chloride Level 118 H Carbon Dioxide Level 23 Anion Gap 8 Blood Urea Nitrogen 35 H Creatinine 0.60 Est Glomerular Filtrat Rate mL/min Glucose Level 88 Calcium Level 8.9 Phosphorus Level 3.2 Magnesium Level 2.1 Consultation Date/Type/Reason Admit Date/Time Apr 29, 2018 at 21:16 Initial Consult Date 04/30/18 Type of Consult cardiology Reason for Consultation AF Requesting Provider: ROSANNE DODD MD Exam/Review of Systems Vital Signs Vitals Vital Signs Date Temp Pulse Resp B/P (MAP) Pulse Ox O2 O2 Flow FiO2 Time Delivery Rate 05/03/18 90 12:53 05/03/18 99.5 18 125/78 96 12:06 (94) 05/03/18 Nasal 2.0 09:00 Cannula Intake and Output 05/02/18 05/02/18 05/03/18 1515:00 23:00 07:00 IntakeIntake Total 660 ml 660 ml 830 ml OutputOutput Total 120 ml 130 ml 120 ml BalanceBalance 540 ml 530 ml 710 ml Exam Review of Systems: CONSTITUTIONAL: No fevers, chills. PULMONARY: No sob CARDIOVASCULAR: No chest pain/palpitations GASTROINTESTINAL: No nausea/vomiting. GENITOURINARY: No hematuria/dysuria. MUSCULOSKELETAL: No myagias/arthalgias. PSYCHIATRIC: The patient denies depression. NEUROLOGIC: No weakness Constitutional: alert Psych: no complaints Head: normocephalic ENMT: mucosa pink and moist Neck: supple, jvd (9 cm water) Respiratory: diminished breath sounds Cardiovascular: irregular rhythm Gastrointestinal: soft, non-tender Musculoskeletal: muscle tone Extremities: edema (n) Medications Medications Current Medications Vancomycin HCl (Vanco Iv Per Pharmacy) VANCOMYCIN PER PHARMACY PER PROTOCOL XX ; Start 04/30/18 at 00:00 Piperacillin Sod/ Tazobactam Sod 100 ml @ 200 mls/hr Q6 IVPB Last administered on 05/03/18 12:32; Admin Dose 200 MLS/HR; Start 04/30/18 at 02:00 Collagenase (Santyl) 1 applic DAILY TOP Last administered on 05/03/18 09:07; Admin Dose 1 APPLIC; Start 05/01/18 at 04:30 Sodium Chloride 1,000 ml @ 80 mls/hr [id number] IV Last administered on 05/03/18at 04:18; Admin Dose 80 MLS/HR; Start 05/01/18 at 08:00 Metoprolol Tartrate (Lopressor) 5 mg Q4 IV Last administered on 05/03/18at 12:45; Admin Dose 5 MG; Start 05/02/18 at 13:00 Vancomycin HCl 250 ml @ 125 mls/hr Q24H IVPB ; Start 05/04/18 at 00:00 LAKEISHA PANTOJA May 03, 2018 14:27
--- NOTE | 2018-05-03 18:15 | NUR ---
Pt VSS, awake, nonverbal, open eyes and tracks. Family at bedside and requested to speak to hospitalist for updates. Pt's family able to talk to Dr. Beckett for updated plan of care. Wound care provided. Will moved to low air mattress once bed available. Needs attended.
[2018-05-04] VITALS (11 sets, daily range): BP systolic 112–130; BP diastolic 66–78; PULSE 85–110; RESP 17–46
[2018-05-04] MEDS: VANCOMYCIN 1 GM 250 ML IVPB SCH (00:15)
[2018-05-04] MEDS: PIPER-TAZO 3.375 GM IV (PMX) 100 ML IVPB SCH ×4 (00:15→17:31)
[2018-05-04] MEDS: METOPROLOL 5 MG INJ IV SCH ×6 (02:05→21:08)
--- NOTE | 2018-05-04 06:16 | NUR ---
Hourly rounding completed. Turned pt q2h. Skin kept clean, dry, and intact. Pt. vital signs stable. No signs of distress or pain. All needs met and attended too.l Will endorse continuity of care to day shift.
[2018-05-04] MEDS: BALSAM PERU/CASTOR OIL 60 GM TUBE TOP SCH (09:20)
[2018-05-04] MEDS: COLLAGENASE 5 GM (UD JAR) TOP SCH (09:20)
[2018-05-04] MEDS: SOD CHLORIDE 0.45% 1,000 ML IV SCH (11:23)
--- NOTE | 2018-05-04 11:25 | NUR ---
NUTRITION NOTE: Off pressors. Seen asleep at time of visit; family not available currently. Pt remains NPO 2/2 abdominal perforation, no plans for surgery per MD notes. Pt has been NPO x 5 days. On NS at 80 ml/hr. Na+= 149, K 3.1. Having diarrhea. WBC trending up. Noted pt on piper tazo, vanc currently. Pt has a central line access. If appropriate with goals of care, rec to initiate TPN. If TPN is considered, may start with D10W, AA5.5% at 60 ml/hr. Supplemental IVF per MD.
--- NOTE | 2018-05-04 12:03 | NUR ---
WOUND CONSULT: 84 year old female admitted with rapid atrial fibrillation, abdominal perforation, septic shock, and acute respiratory failure per record. History of CVA, hypertension, and dementia per medical history. Patient awake with eyes open. WBC 19.6. H&H 11.4/34.6. Albumin 2.0 Currently NPO. Seen by Dietitian on 05/04/18. Recommended TPN per RD. Nasal cannula. Garza cath. Incontinent of bowel. Max assist to turn. On low air loss surface. Appears weakness to the neck, patient's head turn to side. ASSESSMENT/RECOMMENDATIONS: - Sacrococcyx stage 3 pressure injury. Condition present on admission per photo documentation. [id number]. Full thickness wound with pink/pale yellow wound bed and surrounding maroon area. Small serous drainage. No odor. Sacrococcyx stage 3 wound: Cleanse with normal saline. Pat dry. Apply Santyl ointment daily to wound bed. Then, cover with foam border dressing. - Left ear intact deep tissue pressure injury. Condition not present on admission. [id number]. Non-blanchable maroon discoloration. Periwound intact. No drainage. No odor. - Right ear intact deep tissue pressure injury. Condition not present on admission. [id number]. Non-blanchable maroon discoloration. Periwound intact. No drainage. No odor. Left and Right ears DTPIs: Apply Venelex ointment BID. Then, cover with foam border dressing. - Use EHOB waffle cushion as pillow. Apply Roll-towels under bilateral side of waffle cushion to support head to neutral position. - Continue low air loss surface. - Reposition every 2 hours. - Float heels off bed with pillows. - Bilateral heels and Bilateral ankles: Cover with Allevyn Heel for protection. Discussed assessment and plan of care with RNDes. RN to obtain wound care recommendations from MD and notify family regarding pressure injuries. Deedee Carbone, BSN RN CWOCN
--- NOTE | 2018-05-04 14:59 | PN ---
Date/Time of Note Date/Time of Note DATE: 05/04/18 TIME: 14:57 Assessment/Plan VTE Prophylaxis Risk score (from [facility] [place])>0 risk: 8 SCD applied (from [facility] [place]): Yes Pharmacological prophylaxis: NA/contraindicated Pharm contraindication: surgical contra Assessment/Plan Hospital Course 1. Perforated abdominal viscus Surgery consultation appreciated, patient is a high surgical risk and has a poor overall prognosis considering her comorbidities and hence surgery has been deferred Patient is having bowel movements Follow-up on repeat CT abdomen Diet to be addressed based on repeat CT abdomen 2. Septic shock with lactic acidosis Continue antibiotics vancomycin and Zosyn and IV fluids 3. Acute kidney injury likely secondary to sepsis-resolved 4. 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 Rapid A. fib-improved Continue digoxin and beta-sangita 6. Hypokalemia Replete Prophylaxis: SCDs DC planning: drum worker following and coordinating complex family dynamics patient resides in a board and care Result Diagram: 05/03/18 04305/03/18 0430 Subjective 24 Hr Interval Summary Subjective hx not possible: pt non-verbal Exam/Review of Systems Vital Signs Vitals Vital Signs Date Temp Pulse Resp B/P (MAP) Pulse Ox O2 O2 Flow FiO2 Time Delivery Rate 05/04/18 97 12:22 05/04/18 98.7 18 126/78 100 Nasal 11:07 (94) Cannula 05/04/18 2.0 08:00 Intake and Output 05/03/18 05/03/18 05/04/18 1515:00 23:00 07:00 IntakeIntake Total 100 ml 980 ml 350 ml OutputOutput Total 600 ml 300 ml BalanceBalance 100 ml 380 ml 50 ml Exam Constitutional: non-verbal Respiratory: clear to auscultation Cardiovascular: regular rate and rhythm Gastrointestinal: soft; No distended Musculoskeletal: nl extremities to inspection Medications Medications Current Medications Vancomycin HCl (Vanco Iv Per Pharmacy) VANCOMYCIN PER PHARMACY PER PROTOCOL XX ; Start 04/30/18 at 00:00 Piperacillin Sod/ Tazobactam Sod 100 ml @ 200 mls/hr Q6 IVPB Last administered on 05/04/18at 11:23; Admin Dose 200 MLS/HR; Start 04/30/18 at 02:00 Collagenase (Santyl) 1 applic DAILY TOP Last administered on 05/04/18at 09:20; Admin Dose 1 APPLIC; Start 05/01/18 at 04:30 Metoprolol Tartrate (Lopressor) 5 mg Q4 IV Last administered on 05/04/18at 13:35; Admin Dose 5 MG; Start 05/02/18 at 13:00 Vancomycin HCl 250 ml @ 125 mls/hr Q24H IVPB Last administered on 05/04/18at 00:15; Admin Dose 125 MLS/HR; Start 05/04/18 at 00:00 Potassium Chloride 40 meq/ Sodium Chloride 1,000 ml @ 80 mls/hr [id number] IV ; Start 05/04/18 at 14:00 SHARON AMBRIZ May 04, 2018 14:59
[2018-05-04] MEDS: POTASSIUM CHLORIDE 40 MEQ in SOD CHLORIDE 0.9% 980 ML IV SCH (15:01)
--- NOTE | 2018-05-04 18:46 | NUR ---
RN NOTE PT IS NPO ON IV FLUID AND IV ANTIBIOTICS , NEW DTI WOUND FOUND ON BOTH EARS M FAMILY REBECA NOTIFIED , FILED INCIDENT REPORT AND NEW WOUND CONSULT BY WOUND CARE NURSE , PT REPOSITIONED Q 2 H , PT HAD ONE BM .
--- NOTE | 2018-05-04 18:52 | NUR ---
RN NOTE CENTRAL LINE DRESSING CHANGED USING STEARAL TECHNIQUE .
--- NOTE | 2018-05-04 23:58 | NUR ---
RR rate noted to be in mid 40s at 2100. RT at bedside. RR noted to decrease to mid 20s-30s during sleep. Most likely attributing high RR to patient needing to be changed. Will continue to monitor at this time.
[2018-05-05] VITALS (15 sets, daily range): BP systolic 102–137; BP diastolic 55–78; PULSE 87–133; RESP 19–38
[2018-05-05] MEDS ORDERED: IPRATROPIUM (NEB) 0.5 MG/2.5 ML AMP HHN PRN (00:30)
[2018-05-05] MEDS ORDERED: LEVALBUTEROL (NEB) 0.63 MG/3 ML AMP HHN PRN (00:30)
--- NOTE | 2018-05-05 00:32 | NUR ---
RR noted to return to low 40s. Dr. Franco notified. Orders for nebulizer treatments given. Will continue to monitor. Addendum: 05/05/18 at 0440 by EDDIE MCKEON RN RR currently 30. So far no orders from Dr. Franco. Will continue to monitor. Vitals remain stable besides AF with mild RVR 110s
[2018-05-05] MEDS: VANCOMYCIN 1 GM 250 ML IVPB SCH ×2 (00:49→23:32)
[2018-05-05] MEDS: METOPROLOL 5 MG INJ IV SCH ×6 (00:52→20:51)
[2018-05-05] MEDS: PIPER-TAZO 3.375 GM IV (PMX) 100 ML IVPB SCH ×5 (00:52→23:37)
[2018-05-05] MEDS: POTASSIUM CHLORIDE 40 MEQ in SOD CHLORIDE 0.9% 980 ML IV SCH ×3 (02:30→17:58)
--- NOTE | 2018-05-05 06:58 | NUR ---
EOSS N: Non-verbal, tracks with eyes, responds to verbal and tactile stimulus. CV: AF not well controlled, HR 90s-140s throughout the night. Metoprolol 5 mg IV Q4HR continued. BP stable throughout the night. R: Maintained NC 2 LPM. 1x respiratory treatment given for RR 40s. Dr. Franco aware. Treatment had no effect on RR, aware. GI: NPO continued. BM x4 throughout the night. Dietary recommends TPN at this time due to NPO x6 days : 200 ml Garza output. Access: RIJ. Dressing reinforced. Fluids: 0.9 NS + 40 mEq 80ml/hr maintained. Integ: Bilateral DTIs on ears. Possible DTI on medial back. Blanchable redness on upper left back. Stg 3 sacrococcyx. Wound care provided. Q2hr turning. WOCN has seen the patient. CODE: NO COMPRESSIONS, NO SHOCK. INTUBATE DURING CODE. Family discussions continuing with social work. Will endorse care to AM nurse.
[2018-05-05] MEDS: BALSAM PERU/CASTOR OIL 60 GM TUBE TOP SCH (09:03)
[2018-05-05] MEDS: COLLAGENASE 5 GM (UD JAR) TOP SCH (09:03)
[2018-05-05] MEDS ORDERED: SOD CHLORIDE 0.9% 100 ML ONE (09:54)
[2018-05-05] MEDS ORDERED: IOHEXOL 300MG/ML 150 ML BTL ONE (09:54)
--- NOTE | 2018-05-05 10:27 | NUR ---
Procedure Ordered:CT ABD/PEL W/CONTRAST Reason for Exam Today:F/U PERF VISCUS Previous Exams: Allergies:NKDA Current Medications Taken: Glucophage ( ) Metformin ( ) Previous reaction to contrast media: Yes ( ) No ( X) : Yes ( ) No (X ) Asthma: Yes ( ) No ( X) Diabetes: Yes ( ) No ( X) Myeloma: Yes ( ) No (X ) Heart Disease: Yes (X ) No ( ) Cardiac Disease: Yes ( ) No (X ) Kidney Disease: Yes ( ) No X ) Vascular Disease: Yes ( ) No (X) Patient Teaching done: Yes ( ) No ( ) Tip Cementer Used: Yes ( ) No ( ) Name of Tip Cementer: Language Used: As part of the test requested by your doctor, contrast media may be injected into your vein while the x-rays are being taken. Occasionally, reactions from IV contrast may occur. The physician and staff of this hospital are trained to treat these reactions. Select the type of Contrast that will be given to patient: Isovue 300 ( ) Isovue 370 ( ) Visipaque ( ) Cystografin ( ) OMNIPAQUE 300 (X) Gastrographin ( ) Redi-cat ( ) Volumen ( ) Amount of contrast to be given: 80CC IV (X ) PO ( ) Date given:05/05/18 Lab Values: BUN: 35 Creatinine:0.60 Reason why contrast cannot be given: Location of patient pre-procedure:[facility] Location of patient post procedure:[facility] PT TOLERATED IV CONTRAST INJECTION WELL
--- NOTE | 2018-05-05 10:48 | NUR ---
RN NOTES INFORMED DR. AMBRIZ THAT PT. HAD ONLY 200ML OUTPUT LAST NIGHT.
--- NOTE | 2018-05-05 11:18 | NUR ---
RN NOTED DR. AMBRIZ ORDERED TO INCREASED CURRENT IVF TO 100M L/HR, CARRIED OUT ORDERED.
--- NOTE | 2018-05-05 12:15 | NUR ---
RN NOTES SEND MESSAGE TO DR. AMBRIZ THAT THE CT SCAN RESULT IS IN THE SYSTEM. DENISE HICKMAN IS ALSO AWARE.
--- NOTE | 2018-05-05 13:20 | CONS ---
Date/Time of Note Date/Time of Note DATE: 05/05/18 TIME: 13:18 Assessment/Plan Assessment/Plan Hospital Course IMPRESSION: 1. Atrial fibrillation with a rapid ventricular response in the setting of hypotension, likely development of sepsis with a perforated bowel.-some recurrent mild RVR 2. Abnormal echocardiogram, assess for acute coronary syndrome.-nicolas trop x 3 3. Hypotension,-overall improved 4. Perforated bowel. 5. Dehydration. 6. Dementia. 7. Anemia. 8. Leukocytosis-worsening 9. Hypernatremia. Recc: -Tele -Continue current IVP BB as tolerated and will give IVP dose of digoxin ti aide in HR control -Continue abxs's and f/u cx data -off pressors will f/u bp closely -poor prognosis Result Diagram: 05/05/18 0533 05/05/18 0533 Results 24hrs Laboratory Tests Test 05/05/18 05:33 White Blood Count 22.5 H Red Blood Count 3.56 L Hemoglobin 11.3 L Hematocrit 34.2 L Mean Corpuscular Volume 96.1 Mean Corpuscular Hemoglobin 31.7 Mean Corpuscular Hemoglobin Concent 33.0 Red Cell Distribution Width 13.8 Platelet Count 466 #H Mean Platelet Volume 11.5 H Immature Granulocytes % 3.200 H Neutrophils % Segmented Neutrophils % (Manual) 61 Band Neutrophils % (Manual) 22 H Lymphocytes % Lymphocytes % (Manual) 13 L Monocytes % Monocytes % (Manual) 4 Eosinophils % Basophils % Nucleated Red Blood Cells % 1 H Immature Granulocytes # 0.720 H Neutrophils # Neutrophils # (Manual) 14.8 H Band Neutrophils # 4.9 H Lymphocytes (Manual) 2.9 Lymphocytes # Monocytes # Monocytes # (Manual) 0.9 Eosinophils # Basophils # Nucleated Red Blood Cells # Platelet Estimate NORMAL Giant Platelets 3 H Sodium Level 154 H Potassium Level 4.3 Chloride Level 121 H Carbon Dioxide Level 21 Anion Gap 12 Blood Urea Nitrogen 32 H Creatinine 0.61 Est Glomerular Filtrat Rate mL/min Glucose Level 102 Calcium Level 8.7 Phosphorus Level 3.7 Magnesium Level 2.2 Consultation Date/Type/Reason Admit Date/Time Apr 29, 2018 at 21:16 Initial Consult Date 04/30/18 Type of Consult cardiology Reason for Consultation AF Requesting Provider: ROSANNE DODD MD Exam/Review of Systems Vital Signs Vitals Vital Signs Date Temp Pulse Resp B/P (MAP) Pulse Ox O2 O2 Flow FiO2 Time Delivery Rate 05/05/18 133 12:00 05/05/18 97.7 19 137/61 94 11:37 (86) 05/05/18 Nasal 2.0 09:05 Cannula Intake and Output 05/04/18 05/04/18 05/05/18 1515:00 23:00 07:00 IntakeIntake Total 0 ml 1130 ml OutputOutput Total 350 ml 200 ml BalanceBalance -350 ml 930 ml Exam Review of Systems: CONSTITUTIONAL: No fevers, chills. PULMONARY: No sob CARDIOVASCULAR: tachycardia GASTROINTESTINAL: No nausea/vomiting. GENITOURINARY: No hematuria/dysuria. MUSCULOSKELETAL: No myagias/arthalgias. PSYCHIATRIC: The patient denies depression. NEUROLOGIC: encephalopathic Constitutional: alert Psych: no complaints, confusion ENMT: mucosa pink and moist Neck: supple, jvd (9 cm water) Respiratory: diminished breath sounds (at bases/B) Cardiovascular: irregular rhythm (tachycardic) Gastrointestinal: soft, non-tender Musculoskeletal: muscle tone (normal) Extremities: edema (none) Neurological: other (No focal deficits) Medications Medications Current Medications Vancomycin HCl (Vanco Iv Per Pharmacy) VANCOMYCIN PER PHARMACY PER PROTOCOL XX ; Start 04/30/18 at 00:00 Piperacillin Sod/ Tazobactam Sod 100 ml @ 200 mls/hr Q6 IVPB Last administered on 05/05/18 11:12; Admin Dose 200 MLS/HR; Start 04/30/18 at 02:00 Collagenase (Santyl) 1 applic DAILY TOP Last administered on 05/05/18 09:03; Admin Dose 1 APPLIC; Start 05/01/18 at 04:30 Metoprolol Tartrate (Lopressor) 5 mg Q4 IV Last administered on 05/05/18 12:47; Admin Dose 5 MG; Start 05/02/18 at 13:00 Vancomycin HCl 250 ml @ 125 mls/hr Q24H IVPB Last administered on 05/05/18 00:49; Admin Dose 125 MLS/HR; Start 05/04/18 at 00:00 Potassium Chloride 40 meq/ Sodium Chloride 1,000 ml @ 100 mls/hr Q10H IV Last administered on 05/05/18 06:36; Admin Dose 80 MLS/HR; Start 05/04/18 at 14:00 Levalbuterol (Xopenex Neb) 0.63 mg Q4H RESP THERAPY PRN HHN sob Last admi nistered on 05/05/18at 00:40; Admin Dose 0.63 MG; Start 05/05/18 at 00:30 Ipratropium [place] (Atrovent 0.02% (Neb)) 0.5 mg Q4H RESP THERAPY PRN HHN SHORTNESS OF BREATH Last administered on 05/05/18at 00:40; Admin Dose 0.5 MG; Start 05/05/18 at 00:30 LAKEISHA PANTOJA May 05, 2018 13:20
[2018-05-05] MEDS ORDERED: DIGOXIN 500 MCG INJ IV ONE (13:30)
--- NOTE | 2018-05-05 14:30 | NUR ---
RN NOTES DR. AMBRIZ SPOKED WITH THE PT. COUSIN DORA REGARDING THE PT. CONDITION.
--- NOTE | 2018-05-05 15:05 | NUR ---
SW: SPOKESPERSON KERON has been working on this case since 1:00pm today to follow up regarding patient's decision maker/ spokesperson. KERON called and spoke with Teto Juarez ([phone]), who states that patient has been living with her and her daughter for past 3-[address] [place] [address]. States that her daughter Mirela ([phone]) is patient's [facility] provider. States patient was recently enrolled in hospice, but states that the hospice discharged her. States that patient is and . States that patient had a boyfriend, and that she did not want him visiting anymore. She states that she thinks patient has 2 sons, but does not know their whereabouts. States that patient receives SS benefits through her work. She rushed this underwriter solicitation director off the phone, stating she wants to speak with RN and MD about patient's condition. [facility] Licensing: SW contacted [facility] at [phone] and spoke with Paradise. Per chart review, patient has stage 3 wound on her sacrococcyx. She stated that the address provided has a history of several reports for providing unlicensed care to patients, and states that the most recent citation was in 2018. She recommends that this underwriter solicitation director also call and file an APS report. Paradise states that there is no clear evidence of providing care to more than one person, but requested that the [id number] form be faxed to [phone] for their records. KERON faxed the form to above fax number. KERON later spoke with Dr. Beckett, who recommends [facility] hosp[facility] for this patient. However, there is no definite spokesperson at this time. According to Dr. Beckett, A [facility] staff member has reported seeing this spokesperson on records "Teto Juarez" claiming to be the responsible green party for this patient, as well as other patients who had been admitted to [facility] in the past. According to this [facility] staff member, Teto owns a hospice agency, and will follow up with her hospice patient's at the hospital and claim to be their "late cousins ." APS: KERON called APS at [phone] and filed an APS report. Report number is: [id number]. Bioethics referral: SW referred this case to Bioethics committee. Dr. Beckett is recommending [facility] hospice. Plan/ Follow UP: KERON has discussed above information with Dr. Beckett. Plan is for bioethics meeting to be arranged to discuss goals of care, hospice, spokesperson, etc. [employer] T[employer] continues to remain available as needed throughout patient's treatment process.
--- NOTE | 2018-05-05 17:52 | PN ---
Date/Time of Note Date/Time of Note DATE: 05/05/18 TIME: 17:50 Assessment/Plan VTE Prophylaxis Risk score (from [facility])>0 risk: 9 SCD applied (from [facility]): Yes Pharmacological prophylaxis: NA/contraindicated Pharm contraindication: other Assessment/Plan Hospital Course 1. Perforated abdominal viscus Surgery consultation appreciated, patient is a high surgical risk and has a poor overall prognosis considering her comorbidities and hence surgery has been deferred Patient is having bowel movements Repeat CT abdomen continues to show perforation of the colon Patient is appropriate for inpatient hospice, bioethics consultation pending as there is no family to enroll patient in hospice 2. Septic shock with lactic acidosis Continue antibiotics vancomycin and Zosyn and IV fluids 3. Acute kidney injury likely secondary to sepsis-resolved 4. 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 Rapid A. fib-improved Continue digoxin and beta-sangita 6. Hypokalemia Replete Prophylaxis: SCDs DC planning: Bioethics consultation pending, patient with poor prognosis Result Diagram: 05/05/18 0533 05/05/18 0533 Results 24hrs Laboratory Tests Test 05/05/18 05:33 White Blood Count 22.5 H Red Blood Count 3.56 L Hemoglobin 11.3 L Hematocrit 34.2 L Mean Corpuscular Volume 96.1 Mean Corpuscular Hemoglobin 31.7 Mean Corpuscular Hemoglobin Concent 33.0 Red Cell Distribution Width 13.8 Platelet Count 466 #H Mean Platelet Volume 11.5 H Immature Granulocytes % 3.200 H Neutrophils % Segmented Neutrophils % (Manual) 61 Band Neutrophils % (Manual) 22 H Lymphocytes % Lymphocytes % (Manual) 13 L Monocytes % Monocytes % (Manual) 4 Eosinophils % Basophils % Nucleated Red Blood Cells % 1 H Immature Granulocytes # 0.720 H Neutrophils # Neutrophils # (Manual) 14.8 H Band Neutrophils # 4.9 H Lymphocytes (Manual) 2.9 Lymphocytes # Monocytes # Monocytes # (Manual) 0.9 Eosinophils # Basophils # Nucleated Red Blood Cells # Platelet Estimate NORMAL Giant Platelets 3 H Sodium Level 154 H Potassium Level 4.3 Chloride Level 121 H Carbon Dioxide Level 21 Anion Gap 12 Blood Urea Nitrogen 32 H Creatinine 0.61 Est Glomerular Filtrat Rate mL/min Glucose Level 102 Calcium Level 8.7 Phosphorus Level 3.7 Magnesium Level 2.2 Subjective 24 Hr Interval Summary Subjective hx not possible: pt non-verbal Exam/Review of Systems Vital Signs Vitals Vital Signs Date Temp Pulse Resp B/P (MAP) Pulse Ox O2 O2 Flow FiO2 Time Delivery Rate 05/05/18 102 16:04 05/05/18 97.7 19 119/67 94 15:03 (84) 05/05/18 Nasal 2.0 09:05 Cannula Intake and Output 05/04/18 05/04/18 05/05/18 1515:00 23:00 07:00 IntakeIntake Total 0 ml 1130 ml OutputOutput Total 350 ml 200 ml BalanceBalance -350 ml 930 ml Exam Constitutional: non-verbal Respiratory: clear to auscultation Cardiovascular: regular rate and rhythm Gastrointestinal: soft; No distended Musculoskeletal: nl extremities to inspection Medications Medications Current Medications Vancomycin HCl (Vanco Iv Per Pharmacy) VANCOMYCIN PER PHARMACY PER PROTOCOL XX ; Start 04/30/18 at 00:00 Piperacillin Sod/ Tazobactam Sod 100 ml @ 200 mls/hr Q6 IVPB Last administered on 05/05/18 17:13; Admin Dose 200 MLS/HR; Start 04/30/18 at 02:00 Collagenase (Santyl) 1 applic DAILY TOP Last administered on 05/05/18 09:03; Admin Dose 1 APPLIC; Start 05/01/18 at 04:30 Metoprolol Tartrate (Lopressor) 5 mg Q4 IV Last administered on 05/05/18 16:35; Admin Dose 5 MG; Start 05/02/18 at 13:00 Vancomycin HCl 250 ml @ 125 mls/hr Q24H IVPB Last administered on 05/05/18 00:49; Admin Dose 125 MLS/HR; Start 05/04/18 at 00:00 Potassium Chloride 40 meq/ Sodium Chloride 1,000 ml @ 100 mls/hr Q10H IV Last administered on 05/05/18 06:36; Admin Dose 80 MLS/HR; Start 05/04/18 at 14:00 Levalbuterol (Xopenex Neb) 0.63 mg Q4H RESP THERAPY PRN HHN sob Last administered on 05/05/18 00:40; Admin Dose 0.63 MG; Start 05/05/18 at 00:30 Ipratropium [place] (Atrovent 0.02% (Neb)) 0.5 mg Q4H RESP THERAPY PRN HHN SHORTNESS OF BREATH Last administered on 05/05/18at 00:40; Admin Dose 0.5 MG; Start 05/05/18 at 00:30 SHARON AMBRIZ May 05, 2018 17:52
--- NOTE | 2018-05-05 18:49 | NUR ---
EOSS PT. IS ALERT BUT NON VERBAL. NO SOB OR DISTRESS NOTED. S/E BY DR. AMBRIZ TODAY. REPOSITIONING Q2 DONE. KEPT CLEAN AND DRY. STILL NPO NOTED TO HAVE PERFORATION ON THE CT ABDOMEN. MD IS AWARE. DAILY DRESSING OF WOUND DONE. WILL ENDORSED TO NEXT SHIFT FOR FURTHER CARE.
--- NOTE | 2018-05-05 21:59 | NUR ---
Pt to go to 2236. Report given to MATIAS Schultz on 2E. Transport called. Pt assessed, cleaned. Wound care completed per orders.
--- NOTE | 2018-05-05 22:15 | NUR ---
Report given to Yoseph on 2NE. Pt now transferring to [id number]. Explained that Afib varies from 80s to 120s, but really trends in 90s.
--- NOTE | 2018-05-05 23:49 | NUR ---
TRANSFER NOTES: PT ARRIVED TO THE FLOOR AROUND 2315 PER BED FROM TELE ACCOMPANIED BY TRANSPORTER ARNOLD. PT NOTED TO HAVE SLIGHTLY LABORED BREATHING, COARSE BREATH SOUNDS BILATERALLY ON AUSCULTATION. PT IS QUADRIPLEGIC. NON-VERBAL, NON-RESPONSIVE, OPENS EYES BUT CANNOT MAINTAIN EYE CONTACT. SKIN ASSESSMENT DONE. PT HAS STAGE 3 ON THE [place] AREA. NOTED TO HAVE DTI ON BILATERAL EARS. BILATERAL HEELS WITH BLANCHABLE REDNESS. PICTURES TAKEN ADN ATTACHED TO THE CHART. KEPT PT COMFORTABLE IN BED. DUE ANTIBIOTICS GIVEN. WILL CONTINUE TO MONITOR..
[2018-05-06] MEDS: METOPROLOL 5 MG INJ IV SCH (01:00)
[2018-05-06 01:11] VITALS: BP 113/73; PULSE 78; RESP 35
--- NOTE | 2018-05-06 04:25 | NUR ---
SHIFT REPORT: PT STABLE OF THIS TIME OF REPORT. PT CALM AND NO SIGN OF DISTRESS WAS NOTED. REPOSITIONED EVERY 2 HRS. NEEDS ATTENDED. HOURLY ROUNDS DONE. WILL CONTINUE TO MONITOR.
[2018-05-06] MEDS: POTASSIUM CHLORIDE 40 MEQ in SOD CHLORIDE 0.9% 980 ML IV SCH ×2 (05:36→13:52)
[2018-05-06] MEDS: PIPER-TAZO 3.375 GM IV (PMX) 100 ML IVPB SCH ×2 (05:36→12:24)
[2018-05-06 07:35] VITALS: BP 114/66; PULSE 111; RESP 20
--- NOTE | 2018-05-06 11:11 | NUR ---
NUTRITION NOTE: S/P repeat CT, findings are still consistent with bowel perforation. Pt remains NPO. On NS at 100 ml/hr. Family is not around, pending bioethics consult to decide on possible inpatient hospice care. Aggressive nutrition intervention may not be appropriate at this time. Will continue to monitor plans of care. Noted if hospice is not pursued, pt would benefit from TPN/PPN. May consider switching from NS to supplemental IVF containing dextrose?
--- NOTE | 2018-05-06 12:30 | NUR ---
SS NOTE: BIOETHICS MEETING CONDUCTED BIOETHICS MEETING WAS CONDUCTED TO DISCUSS ISSUES REGARDING NO FAMILY BEING LOCATED, AUTHENTICITY OF CAREGIVER CLAIMING TO BE DISTANT FAMILY MEMBER ABLE TO MAKE DECISIONS ON THE PT'S BEHALF AND IF PT SHOULD BE PROVIDED HOSPICE SERVICE. COMMITTEE WAS CONVENED WITH BIOETHICS COMMITTEE MEMBERS INCLUDING DR LARKIN, DR SWARTZ, DR AMBRIZ, DR MORELAND, [facility] TOOLING MANAGER. PROBATION COUNSELOR KENNY WRAY , STORAGE SPECIALIST FUENTES VILLANUEVA WERE ALSO PRESENT. COMMITTEE MEMBERS MET WITH PT'S CAREGIVER SUNIL VALENCIA TO CLARIFY RELATIONSHIP AND CONFIRM FAMILY CONNECTION. MS VALENCIA DECLINED TO SIGN WRITTEN STATEMENT CLARIFY AND CONFIRMING HER RELATIONSHIP TO THE PT AND FAMILY. COMMITTEE EXPLAINED TO MS VALENCIA THAT PER HIPPA REGULATIONS, NO FURTHER INFORMATION REGARDING PT STATUS/CARE/TRX CAN BE DISCUSSED WITH HER GOING FORWARD. COMMITTEE DISCUSSED THE EXTENSIVE RESEARCH CONDUCTED BY SHIP ERECTOR TO LOCATE FAMILY MEMBERS. NO FAMILY LOCATED AT TIME OF COMMITTEE MEETING. CONCLUSION/RECOMMENDATION FROM BIOETHICS COMMITTEE IS FOR PT TO BE PLACED ON EITHER [facility] OR COMFORT MEASURES. CONCLUSION FROM COMMITTEE IS THAT BECAUSE THERE IS NO FAMILY MEMBERS LOCATED AT THIS TIME AND THAT PT'S CONDITION IS GRAVE, CONSENT FOR HOSPICE SERVICE WOULD BE THE RESPONSIBILITY OF THE ATTENDING PHYSICIAN DR SHARON AMBRIZ. PLAN IS TO CONTACT [facility] SERVICE FOR ASSESSMENT. PLAN IS TO CONTINUE [employer] EFFORTS TO LOCATE ANY FAMILY MEMBERS. SW TO FACILITATE HOSPICE REFERRAL. SW REMAINS AVAILABLE FOR F/U NEEDED.
[2018-05-06] MEDS ORDERED: morphine (DRIP) 100 MG/100 ML 100 ML IV SCH (13:30)
[2018-05-06] MEDS: COLLAGENASE 5 GM (UD JAR) TOP SCH (13:59)
[2018-05-06] MEDS: BALSAM PERU/CASTOR OIL 60 GM TUBE TOP SCH (13:59)
--- NOTE | 2018-05-06 14:28 | NUR ---
SW: F/U WITH [employer] KERON received phone call from Jazmine from [employer] ([phone]), stating that she has been following this patient for some time due to reports int he past. However, she states that she was following this patient under a different name: Keisha Sauceda, and states that the report was against Anait, a [employer] windows server architect. She states that when this journalists and other writers filed an [employer] report, it was cross reported to [facility]. Jazmine stated that she plans to follow up on this case and will f/u with Anait. SW remains available as needed. All other quetions/ concerns denied at this time.
[2018-05-06 14:30] VITALS: BP 116/61; PULSE 88; RESP 22
--- NOTE | 2018-05-06 14:43 | QN ---
Documentation Comment Biomedical ethics committee consultation The biomedical ethics committee met today to discuss the case of this patient. There is some difficulty establishing the Provenance of the personal identifies herself as a caregiver. Regardless given the overall situation for this patient that her status at this time is critical and terminal. She has a perforated viscus and is not a candidate for surgical intervention. Expected life expectancy is less than 2 weeks and probably less than 1 week. The primary care team is requesting that we reaffirm the DO NOT RESUSCITATE status, and address whether or not she would be appropriate for hospice care. Given the overall status of the patient DNR is perfectly appropriate under these circumstances. In addition to this if she can be transferred on to hospice care for by technical reasons that would be appropriate if not then she would be appropriate for comfort care measures. This was the opinion of the entire biomedical ethics committee. Efforts will continue to see if we can identify further family members/blood relatives Respectfully submitted LONNY Sellers MD, MD May 06, 2018 14:43
--- NOTE | 2018-05-06 14:46 | PN ---
Date/Time of Note Date/Time of Note DATE: 05/06/18 TIME: 14:43 Assessment/Plan VTE Prophylaxis Risk score (from Ns)>0 risk: 13 Pharmacological prophylaxis: NA/contraindicated Pharm contraindication: other Assessment/Plan Hospital Course 1. Perforated abdominal viscus Surgery consultation appreciated, patient is a high surgical risk and has a poor overall prognosis considering her comorbidities and hence surgery has been deferred Repeat CT abdomen continues to show perforation of the colon Patient is appropriate for inpatient hospice or comfort measures, patient has no family members to consent for inpatient hospice, bioethics meeting was held this morning and after discussion the recommendation of the bioethics meeting was to support the decision for comfort care due to futility of care and patient's poor prognosis Patient has been started on a morphine drip and CODE STATUS has been changed to comfort care only DC antibiotics 2. Septic shock with lactic acidosis Continue antibiotics vancomycin and Zosyn and IV fluids 3. Acute kidney injury likely secondary to sepsis-resolved 4. 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 Rapid A. fib-improved DC meds as patient is comfort care Prophylaxis: SCDs DC planning: Comfort measures Result Diagram: 05/05/1853205/05/18532 Subjective 24 Hr Interval Summary Subjective hx not possible: pt non-verbal Exam/Review of Systems Vital Signs Vitals Vital Signs Date Temp Pulse Resp B/P (MAP) Pulse Ox O2 O2 Flow FiO2 Time Delivery Rate 05/06/18 98.2 111 20 114/66 95 Nasal 07:35 (82) Cannula 05/06/18 2.0 07:34 Intake and Output 05/05/18 05/05/18 05/06/18 1414:59 22:59 06:59 IntakeIntake Total 1240 ml 450 ml OutputOutput Total 700 ml BalanceBalance 540 ml 450 ml Exam Constitutional: non-verbal Respiratory: clear to auscultation Cardiovascular: regular rate and rhythm Gastrointestinal: soft; No distended Musculoskeletal: nl extremities to inspection Medications Medications Current Medications Vancomycin HCl (Vanco Iv Per Pharmacy) VANCOMYCIN PER PHARMACY PER PROTOCOL XX ; Start 04/30/18 at 00:00 Piperacillin Sod/ Tazobactam Sod 100 ml @ 200 mls/hr Q6 IVPB Last administered on 05/06/18at 12:24; Admin Dose 200 MLS/HR; Start 04/30/18 at 02:00 Collagenase (Santyl) 1 applic DAILY TOP Last administered on 05/06/18 13:59; Admin Dose 1 APPLIC; Start 05/01/18 at 04:30 Vancomycin HCl 250 ml @ 125 mls/hr Q24H IVPB Last administered on 05/05/18 23:32; Admin Dose 125 MLS/HR; Start 05/04/18 at 00:00 Potassium Chloride 40 meq/ Sodium Chloride 1,000 ml @ 100 mls/hr Q10H IV Last administered on 05/06/18 13:52; Admin Dose 100 MLS/HR; Start 05/04/18 at 14:00 Levalbuterol (Xopenex Neb) 0.63 mg Q4H RESP THERAPY PRN HHN sob Last administered on 05/05/18 00:40; Admin Dose 0.63 MG; Start 05/05/18 at 00:30 Ipratropium [place] (Atrovent 0.02% (Neb)) 0.5 mg Q4H RESP THERAPY PRN HHN SHORTNESS OF BREATH Last administered on 05/05/18at 00:40; Admin Dose 0.5 MG; Start 05/05/18 at 00:30 Morphine Sulfate/ Sodium Chloride 100 ml @ 2 mls/hr TITRATE IV ; Start 05/06/18 at 13:30 Miscellaneous Information (*Rx Drug Level Order Reminder*) VANCO TROUGH 05/06 @ 2,300 ONCE ONCE XX ; Start 05/06/18 at 23:00; Stop 05/06/18 at 23:01 SHARON AMBRIZ May 06, 2018 14:46
[2018-05-06] MEDS ORDERED: LORAZEPAM 4 MG/ML VIAL IV PRN (15:00)
--- NOTE | 2018-05-06 16:19 | NUR ---
SS NOTE: HOSPICE DECLINED PT SW CONTACTED AND FACILITATED HOSPICE REFERRAL FOR PT TO [facility] FOR GIP ASSESSMENT. THIS TECHNICAL OPERATIONS VICE PRESIDENT INFORMED BY [facility] BLENDER/BRAZE APPLICATOR THAT THEY CAN NOT ACCEPT THIS PT DUE TO [place] LAW NOT PERMITTING A HOSPITAL ATTENDING PHYSICIAN TO SIGN CONSENT ON PT'S BEHALF DUE TO NO FAMILY. VICENTE STATED THAT IT WAS PERCEIVED A CONFLICT OF INTEREST UNDER [place] LAW, THEREFORE [facility] CAN NOT ACCEPT THIS PT AT THIS TIME. KERON UPDATED 2NE CHARGE NURSE REED WHO WILL UPDATE DR AMBRIZ. PLAN IS FOR DR AMBRIZ TO PROVIDE PT WITH COMFORT MEASURES INSTEAD OF HOSPICE SERVICE. SW UNSUCCESSFUL IN CONTINUED EFFECTS TO LOCATE FAMILY AT THIS TIME. SW REMAINS AVAILABLE FOR F/U NEEDED.
[2018-05-06] MEDS ORDERED: ARTIFICIAL TEARS 15 ML OPH BOTH EYES PRN (18:00)
[2018-05-06] MEDS ORDERED: ONDANSETRON 4 MG INJ IV PRN (18:00)
[2018-05-06] MEDS ORDERED: ALBUTEROL/IPRATROPIUM (NEB) 3 ML AMP HHN PRN (18:00)
--- NOTE | 2018-05-06 18:07 | NUR ---
PT IS HENRRY PLEGIC AND NONVERBAL.BIOETHICS ETHICS COMMITTEE DECIDED TO PUT PT COMFORT MEASURES. MORPHINE DRIP STARTED 2MG/HR. WOUND CARE IS DONE.PT REMAIN NPO. BED ALARM IS ON.ORAL CARE IS DONE. PLAN OF CARE WILL CONTINUE
[2018-05-06] MEDS ORDERED: SCOPOLAMINE 1.5 MG PATCH TRANSDERM SCH (18:30)
--- NOTE | 2018-05-06 19:59 | CONS ---
Date/Time of Note Date/Time of Note DATE: 05/06/18 TIME: 19:57 Assessment/Plan Assessment/Plan Hospital Course IMPRESSION: 1. Atrial fibrillation with a rapid ventricular response in the setting of hypotension, likely development of sepsis with a perforated bowel.-some recurrent mild RVR 2. Abnormal echocardiogram, assess for acute coronary syndrome.-nicolas trop x 3 3. Hypotension,-overall improved 4. Perforated bowel. 5. Dehydration. 6. Dementia. 7. Anemia. 8. Leukocytosis-worsening 9. Hypernatremia. Recc: -Now made CARD MAKER will sign off Result Diagram: 05/05/18 0533 05/05/18 0533 Consultation Date/Type/Reason Admit Date/Time Apr 29, 2018 at 21:16 Initial Consult Date 04/30/18 Type of Consult cardiology Reason for Consultation AF Requesting Provider: ROSANNE DODD MD Exam/Review of Systems Vital Signs Vitals Vital Signs Date Temp Pulse Resp B/P (MAP) Pulse Ox O2 O2 Flow FiO2 Time Delivery Rate 05/06/18 98.1 88 22 116/61 96 Nasal 14:30 (79) Cannula 05/06/18 2.0 07:34 Intake and Output 05/05/18 05/05/18 05/06/18 1515:00 23:00 07:00 IntakeIntake Total 1240 ml 450 ml OutputOutput Total 700 ml BalanceBalance 540 ml 450 ml Exam Review of Systems: CONSTITUTIONAL: No fevers, chills. PULMONARY: No sob CARDIOVASCULAR: No obvious chest pain/palpitations GASTROINTESTINAL: No nausea/vomiting. GENITOURINARY: No hematuria/dysuria. MUSCULOSKELETAL: No obvious myagias/arthalgias. PSYCHIATRIC: No current depression. NEUROLOGIC: encephalopathic Constitutional: other (encephalopathic) Psych: no complaints Head: normocephalic ENMT: mucosa pink and moist Neck: supple, jvd (8 cm water) Respiratory: diminished breath sounds (at bases/B) Cardiovascular: irregular rhythm Gastrointestinal: soft, distended Musculoskeletal: muscle weakness (generalized) Extremities: edema (trace/B) Neurological: confused, other Medications Medications Current Medications Levalbuterol (Xopenex Neb) 0.63 mg Q4H RESP THERAPY PRN HHN sob Last administered on 05/05/18at 00:40; Admin Dose 0.63 MG; Start 05/05/18 at 00:30 Ipratropium [place] (Atrovent 0.02% (Neb)) 0.5 mg Q4H RESP THERAPY PRN HHN SHORTNESS OF BREATH Last administered on 05/05/18at 00:40; Admin Dose 0.5 MG; Start 05/05/18 at 00:30 Morphine Sulfate/ Sodium Chloride 100 ml @ 2 mls/hr TITRATE IV Last administered on 05/06/18at 16:47; Admin Dose 2 MLS/HR; Start 05/06/18 at 13:30 Lorazepam (Ativan) 1 mg Q2H PRN IV AGITATION/ANXIETY; Start 05/06/18 at 15:00 Albuterol/ Ipratropium (Duoneb) 3 ml Q4H RESP THERAPY PRN HHN SHORTNESS OF BREATH; Start 05/06/18 at 18:00 Ondansetron HCl (Zofran Inj) 4 mg Q6H PRN IV NAUSEA AND/OR VOMITING; Start 05/06/18 at 18:00 Scopolamine (Transderm-Scop) 1 patch Q72H TRANSDERM ; Start 05/06/18 at 18:30 Eye Lubricant (Artificial Tears Oph) 2 drop EACH SHIFT PRN BOTH EYES DRY EYES; Start 05/06/18 at 18:00 LAKEISHA PANTOJA May 06, 2018 19:59
[2018-05-06 20:24] VITALS: RESP 32
--- NOTE | 2018-05-06 22:13 | NUR ---
Patient found in the room, eyes closed, no movement noted. No palpable carotid, brachial, radial, femoral, popliteal and pedal pulses noted. No heart sounds noted, no lung or breathing sounds noted via use of stethoscope. Bilateral pupils fixed, nonreactive to light. Time of pronounced at 2213.
--- NOTE | 2018-05-06 22:32 | NUR ---
Patient's next of kin notifications: Next of of kin contacted [phone] , spoke to Iva Benítez ( daughter of Radha ) from patient's face sheet and made her aware that patient at [phone] . She claimed that they are not the immediate next of kin and they will try to call patient's immediate family from [place].
--- NOTE | 2018-05-06 23:25 | NUR ---
Patient's Belongings: Belongings such as 3 white rings with blue , red and black stones, 2 fancy bracelets , jacket , pair of pants and socks surrendered to officer Reilly .
--- NOTE | 2018-05-07 00:38 | NUR ---
pt during hourly rounds at 2200, patient found pulseless , no respiration with eyes and mouth open. absent apical and femoral pulse. pupils dilated, non reactive. notified [employer] and reassess. mirror department supervisor pronounced the patient at 2213. [employer] notified family. dr. kumar informed of expiration. [facility] was called and spoke to isabel and he gave a referral id # [id number] . then recd a call from [facility] from [facility] and because of dementia she said they will release the body with referral id # [id number]. post portem care done. guardado removed with 18 cc water in the balloon. left triple lumen central line on her right ij. o2 cannula removed. all allevyn dressing removed. patient washed. 3 rings and 2 bracelet removed from patient and surrendered to security with jacket, pants and socks. morphine drip discontinued. wasted 90cc as witnessed by marissa james. patient was taken down to [facility] c/o transporter ( tammy ).
--- NOTE | 2018-05-07 12:25 | DES ---
Date/Time of Note Date/Time of Note DATE: 05/07/18 TIME: 12:18 Discharge/ Summary Admission/Discharge Info Admit Date/Time Apr 29, 2018 at 21:16 Date/Time May 07, 2018 Final Diagnosis Septic shock secondary to perforated abdominal viscus with acute kidney injury History of functional quadriplegia secondary to previous stroke Preliminary Cause of Cardiac arrest and respiratory failure secondary to septic shock secondary to perforated abdominal viscus with acute kidney injury History of functional quadriplegia secondary to previous stroke Hospital Course Patient is a 84-year-old female with a history of functional quadriplegia secondary to CVA and her dementia who presented with septic shock secondary to a perforated abdominal viscus. Patient was seen by surgery and felt that her overall prognosis considering her comorbidities did not make her appropriate for surgical intervention. Patient had no family members that could be reached by public health social worker and patient only had a woman who cared for at a [facility]/home. Patient was appropriate for comfort care and bioethics consultation was completed with recommendations to support the primary physicians decision for comfort care. Patient was hence placed on comfort measures including a morphine drip and Ativan, patient was made DNR/DNI and ultimately pronounced on 05/06/2018 at 2213. SHARON AMBRIZ May 07, 2018 12:25
== END 2018-05-06 22:20 | disposition expired | DRG 871 ==
LOC: E/R 19:31 → ICU 21:16 → CANRESERV 21:32 → EDBEDREQSVC 23:51 → EDBEDREQ 23:51 → EDBEDREQTM 04-30 00:29 → EDBEDREQ 04-30 00:29 → TEL 05-03 06:00 → 2NE 05-05 22:48
PROVIDERS: ADMIT Family Medicine; ATTEND Internal Medicine
DX: A41.9 Sepsis, unspecified organism (principal); R65.21 Severe sepsis with septic shock; J96.01 Acute respiratory failure with hypoxia; K63.1 Perforation of intestine (nontraumatic); G82.50 Quadriplegia, unspecified; N17.9 Acute kidney failure, unspecified; E87.0 Hyperosmolality and hypernatremia; E44.0 Moderate protein-calorie malnutrition; Z68.1 Body mass index [BMI] 19.9 or less, adult; Z66 Do not resuscitate; I46.9 Cardiac arrest, cause unspecified; I69.965 Other paralytic syndrome following unspecified cerebrovascular disease, bilateral; F03.90 Unspecified dementia, unspecified severity, without behavioral disturbance, psychotic disturbance, mood disturbance, and anxiety; I48.91 Unspecified atrial fibrillation
CPT/HCPCS: 71045; 74018; 74176; 74177; 80048; 80053; 80162; 80164; 80202; 81001; 83605; 83690; 83735; 84100; 84443; 84484; 85025; 85610; 85730; 87040; 87081; 87086; 93005; 93306; 94664; 96361; 96374; 96375; 96376; A4310; C1751; J2270; J2370; J2405; J2543; J3370; J3480; J7030; J7060; J7120; P9612; Q9967